=== PATIENT | male | born 1955 | race Caucasian/White ===

== ENCOUNTER 2024-02-17 14:44 | Outpatient (AMB) | payer MEDICARE, SELFPAY ==
[2024-02-17 14:54] VITALS: BP 120/74; PULSE 66; O2SAT 97; BMI 24.4
--- NOTE | 2024-02-17 14:54 | A.OFFPC_ITS ---
Vital Signs 02/17/24 14:54 Height 5 ft 7.5 in Weight 158 lb 4 oz BMI 24.4 BP 120/74 Blood Pressure Location Lt brachial Position Sitting Pulse 66 Pulse Source Pulse Oximeter Pulse Oximetry (%) 97 Oxygen Delivery Method Room Air Intake Visit Reasons: est care Intake Note: Patient is here as a new patient with concern of not hearing out of his left ear for the last year. Allergies No Known Allergies Allergy (Verified 02/17/24 15:01) Medication List - Last Reconciled 02/17/24 by Mich Worthington MD alprazolam mg PO citalopram 20 mg PO DAILY colestipol 1 g PO DAILY ezetimibe 10 mg PO DAILY triamcinolone acetonide (Nasacort) 2 sprays intranasal DAILY Tobacco use date assessed: 02/17/24 Fall risk assessment: No Falls in past year Last assessed Fall Risk: 02/17/24 Dental Screening Dental Screen Date: 02/17/24 Did you have a dental visit in the last 12 months?: Yes Did you have a dental problem in the last 6 months where you did not have access to dental care?: No Was dental information given to patient?: Patient has dentist HPI est care HPI Details New patient Prior PCP:? Gonzales Last office visit/CPE: Dec Acute issue(s): PMHx: ?Anxiety,?hyperlipidemia, Rhinitis, Asthma, Elevated PSA Dr Nuñez Urology SurgHx: R inguinal Hernia FHx: Mom: Liver CA. Breast CA. Dad: Early CAD & TN. SocHx: Cigar 4 x a month, EtOH quit age 28. No drugs PFSH Social History Housing: House Patient Tobacco Use Status: Former Tobacco user e-Cigarette/Vaping Use: Never Used service: No Current occupational status: retired Cognitive needs: No Hearing needs: No Vision needs: No Questionnaire PHQ-9 Over the last 2 weeks, how often have you been bothered by any of the following problems? 1. Little interest or pleasure in doing things: not at all 2. Feeling down, depressed, or hopeless: not at all 3. Trouble falling or staying asleep, or sleeping too much: not at all 4. Feeling tired or having little energy: not at all 5. Poor appetite or overeating: not at all 6. Feeling bad about yourself - or that you are a failure or have let yourself or your family down: not at all 7. Trouble concentrating on things, such as reading the newspaper or watching television: not at all 8. Moving or speaking so slowly that other people could have noticed. Or the opposite - being so fidgety or restless that you have been moving around a lot more than usual: not at all 9. Thoughts that you would be better off or of hurting yourself in some way: not at all Total score: 0 Depression Screening Interpretation: Negative Depression Screening Done: Yes 26200 - PHQ-9 Billing: Yes Source: Developed by Drs. Yahir Jackson, Teri Shoemaker, David Jimenez and colleagues, with an educational louis from [employer]. Thrive Questionnaire Date Thrive assessed: 02/17/24 I am a: Patient What is your living situation today?: I have a steady place to live Within the past 12 months, did the food you bought not last and you didn't have the money to get more?: Never true Within the past 12 months, did you worry whether your food would run out before you got money to buy more?: Never true Do you have trouble paying for medicines?: No Do you have trouble getting transportation to medical appointments?: No Do you have trouble paying your heating and electricity bill?: No Do you have trouble taking care of your child, family member or friend?: No Do you have trouble with day-to-day activities such as bathing, preparing meals, shopping, managing finances, etc.?: No Are you currently unemployed and looking for a job?: No Are you interested in more education?: No THRIVE Score: 0 LESLIE-7 AMB Questionnaire LESLIE-7 Date LESLIE - 7 assessed: 02/17/24 Feeling nervous, anxious, or on edge: 0 = Not at all Not being able to stop or control worryin = Not at all Worrying too much about different things: 0 = Not at all Trouble relaxin = Not at all Being so restless that it is hard to sit still: 0 = Not at all Becoming easily annoyed or irritable: 0 = Not at all Feeling afraid as if something awful might happen: 0 = Not at all Total LESLIE-7 score (0-4 normal; 5-9 mild; 10-14 moderate; 15-21 severe): 0 Source: Developed by Drs. Yahir Jackson, Teri Shoemaker, David Jimenez and colleagues, with an educational louis from [employer]. LESLIE-7 Assessment Billing LESLIE-7 Assessment Tool: LESLIE-7 Assessment 40708 Review of Systems Const Denies chills, Denies fatigue, Denies fever(s), Denies headache(s) and Denies weakness ENT Denies dizziness and Denies headache(s) Card Denies chest pain, Denies lightheadedness, Denies dyspnea and Denies other (Palpitations) Resp Denies cough, Denies dyspnea, Denies wheezing and Denies other ( shortness of breath) Musc Denies numbness and Denies tingling Neuro Denies dizziness, Denies headache(s), Denies numbness, Denies tingling, Denies paresthesias and Denies weakness Psych Denies anxiety and Denies depression Endo Denies fatigue Aller/Immun Denies wheezing Physical exam (Primary Care) Vital Signs: Last Vital Signs Pulse 66 02/17/24 14:54 BP 120/74 02/17/24 14:54 Pulse Ox 97 02/17/24 14:54 Oxygen Delivery Method Room Air 02/17/24 14:54 BMI result Body Mass Index 24.4 Tobacco/Smoking Status: Tobacco use Status Tobacco use date assessed 02/17/24 02/17/24 15:10 Patient Tobacco Use Status Former Tobacco user 02/17/24 15:10 e-Cigarette/Vaping Use Never Used 02/17/24 15:10 PHQ-9: PHQ-9 Score PHQ-9: Total score 0 02/17/24 15:30 Depression Screening Interpretation: Negative Thrive Assessment: Date of Thrive Assessment Date Thrive assessed 02/17/24 02/17/24 15:10 Const General: no acute distress and well developed Nutritional Appearance: well nourished Orientation/consciousness: patient oriented x3 HENMT Head: Yes normocephalic and Yes atraumatic Eyes General: appearance normal, both eyes and all related structures Pupils: Equal, round and reactive pupils present EOM: EOMs intact bilaterally Resp Effort & Inspection: normal respiratory effort Auscultation: clear to auscultation bilaterally Cardio Rate: regular rate Rhythm: regular rhythm Heart sounds: S1 normal heart sound present, S2 normal heart sound present, no gallops, no murmurs and no rubs Neuro General: patient oriented x3 and gait normal Cranial nerves: Yes Equal, round and reactive pupils present Psych Affect: normal affect Assessment and Plan Assessment & Plan (1) Left ear hearing loss: Code(s): H91.92 - Unspecified hearing loss, left ear Plan: Referred?for?audiology Referred?to?ENT (2) Anxiety: Code(s): F41.9 - Anxiety disorder, unspecified Plan: Patient?is?on?citalopram?and?alprazolam?with?good?control Continue?current?medication?regime (3) Hyperlipidemia: Code(s): E78.5 - Hyperlipidemia, unspecified Plan: Check?lipids (4) Anxiety with depression: Code(s): F41.8 - Other specified anxiety disorders Plan: Check?lipid?as?above Continue?citalopram?and?alprazolam (5) Rhinitis: Code(s): J31.0 - Chronic rhinitis Plan: Continue?Nasacort Advised?smoking?cessation (6) Family history of coronary artery disease: Code(s): Z82.49 - Family history of ischemic heart disease and other diseases of the circulatory system Plan: Check?labs (7) Elevated PSA: Code(s): R97.20 - Elevated prostate specific antigen [PSA] Plan: Follow-up?with?urology?as?recommended (8) Lung nodules: Code(s): R91.8 - Other nonspecific abnormal finding of lung field Plan: Patient?has?had?low?dose?CT?screening?which?shows?nodules - stable Continue?annual?screen (9) Laboratory exam ordered as part of routine general medical examination: Code(s): Z00.00 - Encounter for general adult medical examination without abnormal findings Plan: Check?labs Orders: Orders Lipid Panel Today Z00.00 - Encounter for general adult medical examination without abnormal findings Microalbumin, Random (w Creat) Today I10 - Essential (primary) hypertension Prostate Specific Antigen Scr Today Z12.5 - Encounter for screening for malignant neoplasm of prostate UA and rflx microscopic Today Z00.00 - Encounter for general adult medical examination without abnormal findings Comprehensive [place]. Panel Fast Today Z00.00 - Encounter for general adult medical examination without abnormal findings Complete Blood Count Auto Diff Today Z00.00 - Encounter for general adult medical examination without abnormal findings TSH reflex Free T4 Today Z00.00 - Encounter for general adult medical examination without abnormal findings Referrals Ear/Nose/Throat Referral H91.92 - Unspecified hearing loss, left ear Audiology Referral H91.92 - Unspecified hearing loss, left ear Medications: New triamcinolone acetonide (Nasacort) 2 sprays intranasal DAILY 30 days 16.9 mL 3RF alprazolam MassPat Verified. 0.25 mg PO DAILY 30 days PRN 30 tabs 0RF anxiety F41.8 - Other specified anxiety disorders albuterol sulfate 90 mcg/actuation (Ventolin HFA) 2 puffs inhalation Q4-6H 30 days PRN 8.5 grams 4RF shortness of breath or wheezing Coding Level of Care Code New Pt Level 3 (87456) Diagnoses Left ear hearing loss H91.92 Anxiety F41.9 Hyperlipidemia E78.5 Anxiety with depression F41.8 Rhinitis J31.0 Family history of coronary artery disease Z82.49 Elevated PSA R97.20 Lung nodules R91.8 Laboratory exam ordered as part of routine general medical examination Z00.00 Additional Codes LESLIE-7 Assessment Billing - LESLIE-7 Assessment Tool: LESLIE-7 Assessment 36747 ([id number])
== END 2024-02-17 16:01 | disposition home or self-care (01) ==
PROVIDERS: Visit Provider Family Medicine
DX: H91.92 Unspecified hearing loss, left ear (principal); F41.9 Anxiety disorder, unspecified; E78.5 Hyperlipidemia, unspecified; F41.8 Other specified anxiety disorders; J31.0 Chronic rhinitis; Z82.49 Family history of ischemic heart disease and other diseases of the circulatory system; R97.20 Elevated prostate specific antigen [PSA]; R91.8 Other nonspecific abnormal finding of lung field
CPT/HCPCS: 99203

== ENCOUNTER 2024-04-17 08:31 | Outpatient (REF) | payer MEDICARE, SELFPAY ==
[2024-04-17 11:31] LABS: MANUAL DIFF FLAG NO
[2024-04-17 11:34] LABS: Basophils Absolute Auto 0.1 X10*3/uL (0.0-0.2); Basophils Percent Auto 1.2 % (0-2); Eosinophils Absolute Auto 0.1 X10*3/uL (0.0-0.4); Eosinophils Percent Auto 1.4 % (0-4); Hematocrit 52.2 % (42.0-52.0); Hemoglobin 17.7 g/dl (14.0-18.0); Imm Gran Abs Auto 0.02 X10*3/uL (0.00-0.03); Imm Gran Pct Auto 0.3 % (0.0-0.4); Lymphocytes Absolute Auto 2.2 X10*3/uL (1.2-4.9); Lymphocytes Percent Auto 28.3 % (20-40); Mean Corpuscular HGB Conc 33.9 g/dl (31.0-36.0); Mean Corpuscular Volume 94.4 fL (80.0-98.0); Mean Platelet Volume 10.4 fL (9.4-12.4); Monocytes Absolute Auto 0.5 X10*3/uL (0.1-1.2); Monocytes Percent Auto 6.8 % (2-11); Neutrophils Absolute Auto 4.8 x10*3/uL (2.0-8.3); Platelet Count 333 X10*3/uL (160-400); Red Blood Count 5.53 X10*6/uL (4.60-5.80); Red Cell Distribution Width 13.4 % (11.0-16.0); White Blood Count 7.7 X10*3/uL (4.8-10.8)
[2024-04-17 12:20] LABS: Microalbumin Urine < 5.0 mg/L
[2024-04-17 12:23] LABS: Prostate Specific Antigen Scr 4.74 ng/mL (<0.05-4.0)
[2024-04-17 12:26] LABS: Alanine Aminotransferase 30 U/L (0-40); Albumin Level 4.5 g/dL (3.5-5.0); Alkaline Phosphatase 95 U/L (39-117); Anion Gap 17 (12-20); Aspartate Amino Transferase 18 U/L (5-37); Bilirubin Total 0.4 mg/dL (0.0-1.0); Blood Urea Nitrogen 12 mg/dL (9-16); Calcium 9.9 mg/dL (8.4-10.2); Carbon Dioxide 23 mmol/L (22-29); Chloride 104 mmol/L (96-108); Cholesterol 230 mg/dL (<200); Estimated Glomerular Filt Rate > 60; Glucose Fasting 111 mg/dL (60-99); HDL Cholesterol 42 mg/dL (>40); LDL Cholesterol Calculated 158 mg/dL (<100); Potassium 4.1 mmol/L (3.3-5.1); Sodium 140 mmol/L (135-145); Total Protein 7.3 g/dL (6.5-8.0); Triglycerides 152 mg/dL (<150)
[2024-04-17 12:28] LABS: TSH reflex Free T4 2.09 uIU/mL (0.32-4.0)
[2024-04-17 12:33] LABS: Appearance Urine Clear; Color Urine Yellow; Glucose Urine UA Negative (Negative); Leukocyte Esterase Urine Small (1+) (Negative); Nitrite Urine Negative (Negative); Specific Gravity - Urine 1.015 (1.005-1.025); UMIC TRIGGER UA YES; Urine Blood Negative (Negative); Urine Ketones Negative (Negative); Urine Protein Negative (Neg-Trace)
[2024-04-17 13:22] LABS: Bacteria Urine None Seen (None Seen); Hyaline Casts Urine 0-2 /LPF (0-2); RBC Urine 0-2 /HPF (0-2); Squamous Epithelial Cell Urine 0-2 /HPF (0-2); WBC Urine 0-5 /HPF (0-5)
== END 2024-04-17 08:32 | disposition home or self-care (01) ==
LOC: HO.WFDLDS 08:31
PROVIDERS: Visit Provider Family Medicine
DX: Z00.00 Encounter for general adult medical examination without abnormal findings (principal); I10 Essential (primary) hypertension; Z12.5 Encounter for screening for malignant neoplasm of prostate
CPT/HCPCS: 36415; 80053; 80061; 81001; 81003; 82043; 82570; 84153; 84443; 85025

== ENCOUNTER 2024-05-18 14:19 | Outpatient (AMB) | payer MEDICARE, SELFPAY ==
--- NOTE | 2024-05-18 14:38 | A.OFFPC_ITS ---
Vital Signs 05/18/24 14:43 Height 5 ft 7.5 in Weight 156 lb 2 oz BMI 24.1 BP 138/68 Blood Pressure Location Rt brachial Position Sitting Pulse 83 Pulse Source Pulse Oximeter Pulse Oximetry (%) 94 Oxygen Delivery Method Room Air Intake Visit Reasons: CPE with f/u labs and health maintenance 30 mins Intake Note: Physical. Tried getting a refill on colestipol, but never received it. He is unsure if he should still be on it. Allergies No Known Allergies Allergy (Verified 05/18/24 14:38) Medication List - Last Reconciled 05/18/24 by Mackenzie Quiroz PA-C albuterol sulfate 90 mcg/actuation (Ventolin HFA) 2 puffs inhalation Q4-6H PRN 30 days alprazolam 0.25 mg PO DAILY PRN 30 days citalopram 20 mg PO DAILY colestipol 1 g PO DAILY ezetimibe 10 mg PO DAILY triamcinolone acetonide (Nasacort) 2 sprays intranasal DAILY 30 days Tobacco use date assessed: 02/17/24 Dental Screening Dental Screen Date: 02/17/24 HPI CPE with f/u labs and health maintenance 30 mins HPI Details Patient is a 68-year-old male with a significant past medical history of anxiety, depression, elevated PSA, hyperlipidemia and lung nodules presenting today for a physical exam. He is relatively new here. CV: Blood pressure today in the office is 138/68. He states that he has never been on blood pressure medications. He denies any chest pain or shortness on breath. Does have a significant family history of coronary artery disease. He has a smoker and does have high cholesterol. His cholesterol is not well- controlled and he states that this regimen has worked well for him and he has not that worried about this. He does not want any medication adjustments. Pulm: He follows with the low dose ct program. He has a hx of nodules and follows annually. He is a smoker. No intention of quittting. Uro: following with Dr. Nuñez for elevated psa. He states he did have an MRI. He has an appointment in a couple weeks for a follow up. Psych: he is on citalopram and alprazolam. States he is very stable with this for the last 8 years. Colonoscopy: He thinks he is overdue [facility] Social History Housing: House Patient Tobacco Use Status: Former Tobacco user e-Cigarette/Vaping Use: Never Used service: No Current occupational status: retired Cognitive needs: No Hearing needs: No Vision needs: No Questionnaire Thrive Questionnaire Date Thrive assessed: 02/17/24 LESLIE-7 AMB Questionnaire LESLIE-7 Date LESLIE - 7 assessed: 02/17/24 Source: Developed by Drs. Yahir Jackson, Teri Shoemaker, David Jimenez and colleagues, with an educational louis from [employer]. Physical exam (Primary Care) Vital Signs: Last Vital Signs Pulse 83 05/18/24 14:43 BP 138/68 05/18/24 14:43 Pulse Ox 94 05/18/24 14:43 Oxygen Delivery Method Room Air 05/18/24 14:43 BMI result Body Mass Index 24.1 Tobacco/Smoking Status: Tobacco use Status Tobacco use date assessed 02/17/24 05/18/24 14:44 Patient Tobacco Use Status Former Tobacco user 05/18/24 14:44 e-Cigarette/Vaping Use Never Used 05/18/24 14:44 Thrive Assessment: Date of Thrive Assessment Date Thrive assessed 02/17/24 05/18/24 14:44 Const Orientation/consciousness: patient oriented x3 HENMT Ears: hearing grossly normal bilaterally and TM's normal bilaterally General nose exam: No nasal polyps present Face and sinus: Yes sinuses nontender Mouth: Normal oral and palatal mucosa present Eyes Pupils: Equal, round and reactive pupils present EOM: EOMs intact bilaterally Neck Neck: Yes full ROM and Yes no lymphadenopathy Thyroid: Thyroid normal Chest Chest palpation & inspection: normal inspection of the chest Resp Auscultation: clear to auscultation bilaterally Cardio Rate: regular rate Rhythm: regular rhythm Heart sounds: S1 normal heart sound present and S2 normal heart sound present Peripheral pulses: Peripheral pulses 2+ throughout GI Other: Soft, nontender Auscultation: normal bowel sounds Rectal Exam - Male: Yes deferred General: Yes no CVA tenderness Back/Spine/Pelvis Other: Nontender Back: no CVA tenderness Skin General skin exam: no rashes or lesions noted Neuro General: patient oriented x3, gait normal, CN's II-XI intact bilaterally and deep tendon reflexes 2+ bilaterally Cranial nerves: Yes Equal, round and reactive pupils present Motor exam (neuro): 5/5 motor strength present throughout Sensory Exam: double simultaneous stimulation for sensation normal Coordination: [id number] test normal and Romberg test negative Extrem General: Yes normal to inspection and Yes full ROM Psych Affect: normal affect Attitude: cooperative Thought process: Normal thought process present Thought content: Normal thought content present Insight: Good insight present (Psych) Judgement: Good judgement present (Psych) Office Procedures EKG Details: EKG today in office is normal sinus rhythm. EKG interpreted by myself and patient's PCP. [id number], Complete Results Reviewed Results Reviewed: Laboratory Tests 04/17/24 04/17/24 08:33 08:39 WBC 7.7 RBC 5.53 Hgb 17.7 Hct 52.2 H Plt Count 333 Sodium 140 Potassium 4.1 Chloride 104 Carbon Dioxide 23 Anion Gap 17 BUN 12 Creatinine 0.92 Estimated GFR > 60 Fasting Glucose 111 H Calcium 9.9 Total Bilirubin 0.4 AST 18 ALT 30 Alkaline Phosphatase 95 Albumin 4.5 Triglycerides 152 H Cholesterol 230 H LDL Cholesterol, Calc 158 H HDL Cholesterol 42 PSA Screen 4.74 H TSH 2.09 Urine Creatinine 125.50 Urine Microalbumin < 5.0 Assessment and Plan Assessment & Plan (1) Routine general medical examination at a health care facility: Code(s): Z00.00 - Encounter for general adult medical examination without abnormal findings Plan: Health maintenance reviewed. EKG today in office as listed above. He is asymptomatic but does have a family history of CAD. I have encouraged smoking cessation but he does not wish to quit. Carotid ultrasound and abdominal ultrasound to rule out AAA ordered. I have encouraged diet changes to help with his cholesterol. He does not wish to adjust his regimen. Overdue colonoscopy. Ordered today. Phone number provided for audiology and ENT. (2) Hyperlipidemia: Code(s): E78.5 - Hyperlipidemia, unspecified Plan: As above (3) Family history of coronary artery disease: Code(s): Z82.49 - Family history of ischemic heart disease and other diseases of the circulatory system Plan: Asymptomatic (4) Smoker: Code(s): F17.200 - Nicotine dependence, unspecified, uncomplicated Plan: Encouraged cessation (5) IFG (impaired fasting glucose): Code(s): R73.01 - Impaired fasting glucose Plan: A1c ordered today. Labs reviewed in office. Follow up in 6 months with PCP. Sooner if needed. Patient understands and agrees with the plan. Orders: Orders AMB EKG-In Office Today E78.5 - Hyperlipidemia, unspecified, F17.200 - Nicotine dependence, unspecified, uncomplicated, Z00.00 - Encounter for general adult medical examination without abnormal findings, Z13.6 - Encounter for screening for cardiovascular disorders, Z82.49 - Family history of ischemic heart disease and other diseases of the circulatory system US abdominal aortic aneurysm Today Z13.6 - Encounter for screening for cardiovascular disorders US carotid duplex BI Today E78.5 - Hyperlipidemia, unspecified, F17.200 - Nicotine dependence, unspecified, uncomplicated, Z82.49 - Family history of ischemic heart disease and other diseases of the circulatory system Hemoglobin A1c Today R73.01 - Impaired fasting glucose Referrals Open Access Screening Colonoscopy Referral Z12.11 - Encounter for screening for malignant neoplasm of colon, Z12.12 - Encounter for screening for malignant neoplasm of rectum Medications: New albuterol sulfate 90 mcg/actuation 2 puffs inhalation Q4-6H PRN 8.5 grams 0RF shortness of breath or wheezing colestipol 1 g PO DAILY 90 tabs 3RF ezetimibe 10 mg PO DAILY 90 tabs 3RF Coding Level of Care Code Est Pt Prev Care >65y(46577) Diagnoses Routine general medical examination at a health care facility Z00.00 Hyperlipidemia E78.5 Family history of coronary artery disease Z82.49 Smoker F17.200 IFG (impaired fasting glucose) R73.01 CPT Codes EKG - CPT: [id number], Complete ([id number])
[2024-05-18 14:43] VITALS: BP 138/68; PULSE 83; O2SAT 94; BMI 24.1
== END 2024-05-18 15:29 | disposition home or self-care (01) ==
PROVIDERS: PCP Physician Assistant; Visit Provider Physician Assistant
DX: Z00.00 Encounter for general adult medical examination without abnormal findings (principal); E78.5 Hyperlipidemia, unspecified; Z82.49 Family history of ischemic heart disease and other diseases of the circulatory system; F17.200 Nicotine dependence, unspecified, uncomplicated; R73.01 Impaired fasting glucose
CPT/HCPCS: 93000; 99397

== ENCOUNTER 2024-05-18 15:25 | Outpatient (REF) | payer MEDICARE, SELFPAY ==
[2024-05-18 17:48] LABS: Estimated Average Glucose 128 mg/dL; Hemoglobin A1c % 6.1 % (<6.0)
== END 2024-05-18 15:26 | disposition home or self-care (01) ==
LOC: HO.WFDLDS 15:25
PROVIDERS: Visit Provider Physician Assistant
DX: R73.01 Impaired fasting glucose (principal)
CPT/HCPCS: 36415; 83036

== ENCOUNTER 2024-06-14 09:01 | Outpatient (REF) | payer MEDICARE, SELFPAY ==
--- NOTE | ~2024-06-14 | US_ITS ---
EXAMINATION: US RETROPERITONEAL LIMITED (AORTA) CLINICAL INFORMATION: Screening for cardiovascular disorders. COMPARISON: None available. TECHNIQUE: Pugh-scale, color Doppler and spectral Doppler evaluation of the abdominal aorta. FINDINGS: The aorta is normal. The measurements of the aorta in maximum AP and transverse dimensions respectively are as follows: Proximal: 2.5 x 2.4 cm. Mid: 1.8 x 1.8 cm. Distal: 1.6 x 1.7 cm. PSV: 142 cm/s. The measurements of the common iliac arteries in maximum AP and TRV dimensions are as follows: Right Common Iliac Artery: 1.8 x 1.8 cm. Left Common Iliac Artery: 1.8 x 1.8 cm. US/US abdominal aortic aneurysm IMPRESSION: No sonographic evidence of abdominal aortic aneurysm. Bilateral common iliac artery ectasia.
--- NOTE | ~2024-06-14 | US_ITS ---
EXAMINATION: US EXTRACRANIAL CAROTID DUPLEX, BILATERAL CLINICAL INFORMATION: Nicotine dependence COMPARISON: None available. TECHNIQUE: Real-time ultrasound and Doppler techniques (integrating B-mode 2-D vascular images, Doppler spectral analysis and color-flow Doppler imaging) were utilized to interrogate the extracranial carotid arteries, the vertebral arteries and proximal subclavian arteries bilaterally. The degree of stenosis is determined by criteria similar to NASCET. FINDINGS: Right Side: 1. There is mild atherosclerotic plaque seen in the bifurcation/proximal ICA region. 2. The common carotid artery PSV proximally is 65.9 cm/s and distally 61.5 cm/s. 3. The proximal internal carotid artery velocities are 37.8 cm/s systolic and 15.8 cm/s diastolic. 4. The proximal external carotid artery PSV is 90.9 cm/s. 5. The vertebral artery shows antegrade flow. 6. The subclavian artery waveforms are normal. Left Side: 1. There is mild atherosclerotic plaque seen in the bifurcation/proximal ICA region. 2. The common carotid artery PSV proximally is 64.7 cm/s and distally 47.8 cm/s. 3. The proximal internal carotid artery velocities are 64.5 cm/s systolic and 22.8 cm/s diastolic. 4. The proximal external carotid artery PSV is 108 cm/s. 5. The vertebral artery shows antegrade flow. 6. The subclavian artery waveforms are normal. US/US carotid duplex BI IMPRESSION: 1. RIGHT: Minimal, non-hemodynamically significant stenosis of the proximal right internal carotid artery corresponding to a 0-49% stenosis by velocity criteria. 2. LEFT: Minimal, non-hemodynamically significant stenosis of the proximal left internal carotid artery corresponding to a 0-49% stenosis by velocity criteria.
== END 2024-06-14 09:02 | disposition home or self-care (01) ==
LOC: HO.US 09:01
PROVIDERS: PCP Family Medicine; Visit Provider Physician Assistant
DX: Z13.6 Encounter for screening for cardiovascular disorders (principal); I77.811 Abdominal aortic ectasia; I65.23 Occlusion and stenosis of bilateral carotid arteries; E78.5 Hyperlipidemia, unspecified; F17.200 Nicotine dependence, unspecified, uncomplicated; Z82.49 Family history of ischemic heart disease and other diseases of the circulatory system
CPT/HCPCS: 76706; 93880

== ENCOUNTER 2024-11-10 09:16 | Outpatient (AMB) | payer MEDICARE, SELFPAY ==
--- NOTE | 2024-11-10 09:46 | A.OFFPC_ITS ---
Vital Signs 11/10/24 09:55 Height 5 ft 7.5 in Weight 160 lb BMI 24.7 BP 120/60 Blood Pressure Location Rt brachial Position Sitting Respiration 12 Pulse 62 Pulse Source Pulse Oximeter Temp 97.7 F Temp Source Oral Pulse Oximetry (%) 95 Oxygen Delivery Method Room Air Intake Visit Reasons: follow up labs Allergies simvastatin Allergy (Intermediate, Verified 11/10/24 09:52) Anxiety Medication List - Last Reconciled 11/10/24 by Mich Worthington MD albuterol sulfate 90 mcg/actuation 2 puffs inhalation Q4-6H PRN alprazolam 0.25 mg PO DAILY PRN 30 days citalopram 20 mg PO DAILY 30 days colestipol 1 g PO DAILY ezetimibe 10 mg PO DAILY triamcinolone acetonide (Nasacort) 2 sprays intranasal DAILY 30 days Tobacco use date assessed: 02/17/24 Dental Screening Dental Screen Date: 02/17/24 HPI follow up labs HPI Details 68 y/o male [facility] Last A1c 05/18/24 6.1%. A1c today 11/10/24 is 6.1%. Hx of significantly elevated LDL cholesterol. FHx of CAD. Notes he had been unable to tolerate simvastatin due to fatigue and a general feeling of unwellness. Notes he continues smoking intermittently. [facility] Social History Housing: House Patient Tobacco Use Status: Former Tobacco user e-Cigarette/Vaping Use: Never Used service: No Current occupational status: retired Cognitive needs: No Hearing needs: No Vision needs: No Questionnaire PHQ-9 Over the last 2 weeks, how often have you been bothered by any of the following problems? 1. Little interest or pleasure in doing things: not at all 2. Feeling down, depressed, or hopeless: not at all 3. Trouble falling or staying asleep, or sleeping too much: not at all 4. Feeling tired or having little energy: not at all 5. Poor appetite or overeating: not at all 6. Feeling bad about yourself - or that you are a failure or have let yourself or your family down: not at all 7. Trouble concentrating on things, such as reading the newspaper or watching television: not at all 8. Moving or speaking so slowly that other people could have noticed. Or the opposite - being so fidgety or restless that you have been moving around a lot more than usual: not at all 9. Thoughts that you would be better off or of hurting yourself in some way: not at all Total score: 0 Source: Developed by Drs. Yahir Jackson, Teri Shoemaker, David Jimenez and colleagues, with an educational louis from [employer]. Thrive Questionnaire Date Thrive assessed: 11/03/24 I am a: Patient What is your living situation today?: I have a steady place to live Within the past 12 months, did the food you bought not last and you didn't have the money to get more?: Never true Within the past 12 months, did you worry whether your food would run out before you got money to buy more?: Never true Do you have trouble paying for medicines?: No Do you have trouble getting transportation to medical appointments?: No Do you have trouble paying your heating and electricity bill?: No Do you have trouble taking care of your child, family member or friend?: No Do you have trouble with day-to-day activities such as bathing, preparing meals, shopping, managing finances, etc.?: No Are you currently unemployed and looking for a job?: No Are you interested in more education?: No Please select the resources that you would like help with: None Currently or been in a relationship where the following occur: No concerns reported THRIVE Score: 0 AUDIT C Alcohol Use Questionnaire (AUDIT-C) 1. How often do you have a drink containing alcohol?: Never Total Score: 0 LESLIE-7 AMB Questionnaire LESLIE-7 Date LESLIE - 7 assessed: 02/17/24 Feeling nervous, anxious, or on edge: 1 = Several days Not being able to stop or control worryin = Not at all Worrying too much about different things: 0 = Not at all Trouble relaxin = Not at all Being so restless that it is hard to sit still: 0 = Not at all Becoming easily annoyed or irritable: 0 = Not at all Feeling afraid as if something awful might happen: 0 = Not at all Total LESLIE-7 score (0-4 normal; 5-9 mild; 10-14 moderate; 15-21 severe): 1 Source: Developed by Teri Tyson.W. Navid, David Jimenez and colleagues, with an educational louis from [employer]. Review of Systems Const Denies chills, Denies fatigue, Denies fever(s), Denies headache(s) and Denies weakness ENT Denies dizziness and Denies headache(s) Card Denies dyspnea Resp Denies cough, Denies dyspnea, Denies wheezing and Denies other (shortness of breath) Musc Denies numbness and Denies tingling Neuro Denies dizziness, Denies headache(s), Denies numbness, Denies tingling and Denies weakness Psych Denies anxiety and Denies depression Endo Denies fatigue Aller/Immun Denies wheezing Physical exam (Primary Care) Tobacco/Smoking Status: Tobacco use Status Tobacco use date assessed 02/17/24 11/10/24 09:46 Patient Tobacco Use Status Former Tobacco user 11/10/24 09:46 e-Cigarette/Vaping Use Never Used 11/10/24 09:46 PHQ-9: PHQ-9 Score PHQ-9: Total score 0 11/10/24 09:48 Thrive Assessment: Date of Thrive Assessment Date Thrive assessed 11/03/24 11/10/24 09:46 Currently or been in a relationship where the following occur: No concerns reported Const General: well developed; No acute distress Nutritional Appearance: well nourished Orientation/consciousness: patient oriented x3 HENMT Head: Yes normocephalic and Yes atraumatic Eyes General: appearance normal, both eyes and all related structures Pupils: Equal, round and reactive pupils present EOM: EOMs intact bilaterally Resp Effort & Inspection: normal respiratory effort Auscultation: clear to auscultation bilaterally Cardio Rate: regular rate Rhythm: regular rhythm Heart sounds: S1 normal heart sound present, S2 normal heart sound present, no gallops, no murmurs and no rubs Neuro General: patient oriented x3 and gait normal Cranial nerves: Yes Equal, round and reactive pupils present Psych Affect: normal affect Coding Level of Care Code Est Pt Level 3 (18426) Diagnoses Pre-diabetes R73.03 Hyperlipidemia E78.5 Family history of coronary artery disease Z82.49 Smoker F17.200 Assessment & Plan Assessment & Plan (1) Pre-diabetes: Code(s): R73.03 - Prediabetes Category: Medical Plan: A1c?6.1%?is?in?pre?diabetes?range Encouraged?diet?lower?in?sugars?and?starches Will?continue?to?monitor (2) Hyperlipidemia: Code(s): E78.5 - Hyperlipidemia, unspecified Category: Medical Plan: Significantly?elevated?LDL?cholesterol. Recent?carotid?artery?studies?did?not?show?any?significant?hemodynamic?compromis e Abdominal?ultrasound?did?not?show?abdominal?aortic?aneurysm Patient?has?strong?family?history?of?coronary?artery?disease?cholesterol?levels, is a?smoker and has elevated fasting Blood Sugar. He is on Zetia & Colestipol Strongly?advised?working?diet?lower?in?satura [place]?fats?and?cholesterol?exercise?in?smoking?cessation. He?has?tried?simvastatin?in?the?past?which?caused?significantly?achy?muscles?and ?fatigue. We?discussed?that?newer?statin?medications?often?can?b e?tolerated?so?we?will?try?atorvastatin?and?if?he?has?an?issue,?will?try?pravast atin?or?rosuvastatin. (3) Family history of coronary artery disease: Code(s): Z82.49 - Family history of ischemic heart disease and other diseases of the circulatory system Category: Medical Plan: As above (4) Smoker: Code(s): F17.200 - Nicotine dependence, unspecified, uncomplicated Category: Social Hx Plan: As?above,?advised?cessation Patient?says?he?is?only?smoking?a?couple?of?cigarettes?per?day?or?fewer Agrees?he?should?be?working?on?weaning?down?and?stopping. Will?continue?to?encourage?this. Orders: Orders Comprehensive [place]. Panel Fast Today E78.5 - Hyperlipidemia, unspecified, Z00.00 - Encounter for general adult medical examination without abnormal findings Lipid Panel Today E78.5 - Hyperlipidemia, unspecified, Z00.00 - Encounter for general adult medical examination without abnormal findings Medications: New atorvastatin 40 mg PO BEDTIME 90 days 90 tabs 2RF
[2024-11-10 09:55] VITALS: BP 120/60; PULSE 62; RESP 12; TEMP 36.5; O2SAT 95; BMI 24.7
== END 2024-11-10 10:14 | disposition home or self-care (01) ==
PROVIDERS: PCP Family Medicine; Visit Provider Family Medicine
DX: R73.03 Prediabetes (principal); E78.5 Hyperlipidemia, unspecified; Z82.49 Family history of ischemic heart disease and other diseases of the circulatory system; F17.200 Nicotine dependence, unspecified, uncomplicated

== ENCOUNTER 2025-01-31 10:32 | Outpatient (REF) | payer MEDICARE, SELFPAY ==
[2025-01-31 14:39] LABS: Alanine Aminotransferase 40 U/L (0-40); Albumin Level 4.5 g/dL (3.5-5.0); Alkaline Phosphatase 100 U/L (39-117); Anion Gap 10 (12-20); Aspartate Amino Transferase 26 U/L (5-37); Bilirubin Total 0.5 mg/dL (0.0-1.0); Blood Urea Nitrogen 8 mg/dL (9-16); Calcium 9.5 mg/dL (8.4-10.2); Carbon Dioxide 28 mmol/L (22-29); Chloride 107 mmol/L (96-108); Cholesterol 143 mg/dL (<200); Estimated Glomerular Filt Rate > 60; Glucose Fasting 105 mg/dL (60-99); HDL Cholesterol 42 mg/dL (>40); LDL Cholesterol Calculated 79 mg/dL (<100); Potassium 3.9 mmol/L (3.3-5.1); Sodium 141 mmol/L (135-145); Total Protein 7.2 g/dL (6.5-8.0); Triglycerides 114 mg/dL (<150)
== END 2025-01-31 10:33 | disposition home or self-care (01) ==
LOC: HO.WFDLDS 10:32
PROVIDERS: Visit Provider Family Medicine
DX: Z00.00 Encounter for general adult medical examination without abnormal findings (principal); E78.5 Hyperlipidemia, unspecified
CPT/HCPCS: 36415; 80053; 80061

== ENCOUNTER 2025-02-09 09:17 | Outpatient (AMB) | payer MEDICARE, SELFPAY ==
--- NOTE | 2025-02-09 09:44 | A.OFFPC_ITS ---
Vital Signs 02/09/25 09:48 Height 5 ft 7.5 in Weight 164 lb BMI 25.3 BP 130/70 Blood Pressure Location Rt brachial Position Sitting Respiration 14 Pulse 64 Pulse Source Pulse Oximeter Temp 98.0 F Temp Source Oral Pulse Oximetry (%) 93 Oxygen Delivery Method Room Air Intake Visit Reasons: F/U Med review Intake Note: patient is scheduled for lab review Tablet Coater Required: No Allergies simvastatin Allergy (Intermediate, Verified 02/09/25 09:47) Anxiety Medication List - Last Reconciled 02/09/25 by Mich Worthington MD albuterol sulfate 90 mcg/actuation 2 puffs inhalation Q4-6H PRN alprazolam 0.25 mg PO DAILY PRN 30 days atorvastatin 40 mg PO BEDTIME 90 days citalopram 20 mg PO DAILY 30 days triamcinolone acetonide (Nasacort) 2 sprays intranasal DAILY 30 days Tobacco use date assessed: 02/17/24 Dental Screening Dental Screen Date: 02/17/24 HPI F/U Med review HPI Details 69 y/o male presents to f/u [facility]. Had given him a trial of artovastatin. He had had an issue with achy muscles and fatigue on simvastatin a long time ago. Labs drawn 01/31/25. Reviewed labs with pt. Fasting glucose 105. A1c 11/10/24 6.2%. Triglyceride 114. TC 143. LDL 79, HDL 42. PFSH Social History Housing: House Patient Tobacco Use Status: Former Tobacco user e-Cigarette/Vaping Use: Never Used service: No Current occupational status: retired Cognitive needs: No Hearing needs: No Vision needs: No Questionnaire Thrive Questionnaire Date Thrive assessed: 11/10/24 I am a: Patient What is your living situation today?: I have a steady place to live Within the past 12 months, did the food you bought not last and you didn't have the money to get more?: Never true Within the past 12 months, did you worry whether your food would run out before you got money to buy more?: Never true Do you have trouble paying for medicines?: No Do you have trouble getting transportation to medical appointments?: No Do you have trouble paying your heating and electricity bill?: No Do you have trouble taking care of your child, family member or friend?: No Do you have trouble with day-to-day activities such as bathing, preparing meals, shopping, managing finances, etc.?: No Are you currently unemployed and looking for a job?: No Are you interested in more education?: No Please select the resources that you would like help with: None Currently or been in a relationship where the following occur: No concerns reported THRIVE Score: 0 LESLIE-7 AMB Questionnaire LESLIE-7 Date LESLIE - 7 assessed: 02/17/24 Source: Developed by Drs. Yahir Jackson, Teri Shoemaker, David Jimenez and colleagues, with an educational louis from [employer]. Review of Systems Const Denies chills, Denies fatigue, Denies fever(s), Denies headache(s) and Denies weakness ENT Denies dizziness and Denies headache(s) Card Denies dyspnea Resp Denies cough, Denies dyspnea, Denies wheezing and Denies other (shortness of breath) Musc Denies numbness and Denies tingling Neuro Denies dizziness, Denies headache(s), Denies numbness, Denies tingling and Denies weakness Psych Denies anxiety and Denies depression Endo Denies fatigue Aller/Immun Denies wheezing Physical exam (Primary Care) Vital Signs: Last Vital Signs Temp 98.0 F 02/09/25 09:48 Pulse 64 02/09/25 09:48 Resp 14 02/09/25 09:48 BP 130/70 02/09/25 09:48 Pulse Ox 93 02/09/25 09:48 Oxygen Delivery Method Room Air 02/09/25 09:48 BMI result Body Mass Index 25.3 Tobacco/Smoking Status: Tobacco use Status Tobacco use date assessed 02/17/24 02/09/25 09:44 Patient Tobacco Use Status Former Tobacco user 02/09/25 09:44 e-Cigarette/Vaping Use Never Used 02/09/25 09:44 Thrive Assessment: Date of Thrive Assessment Date Thrive assessed 11/10/24 02/09/25 09:44 Currently or been in a relationship where the following occur: No concerns reported Const General: well developed; No acute distress Nutritional Appearance: well nourished Orientation/consciousness: patient oriented x3 HENMT Head: Yes normocephalic and Yes atraumatic Eyes General: appearance normal, both eyes and all related structures Pupils: Equal, round and reactive pupils present EOM: EOMs intact bilaterally Resp Effort & Inspection: normal respiratory effort Neuro General: patient oriented x3 and gait normal Cranial nerves: Yes Equal, round and reactive pupils present Psych Affect: normal affect Coding Level of Care Code Est Pt Level 4 (38408) Diagnoses Hyperlipidemia E78.5 Screening for colon cancer Z12.11 Screening for prostate cancer Z12.5 Assessment & Plan Assessment & Plan (1) Hyperlipidemia: Code(s): E78.5 - Hyperlipidemia, unspecified Category: Medical Plan: Lipids?not?well?controlled?on?atorvastatin?40?mg?daily. He?had?tried?simvastatin?in?the?past?and?did?not?tolerate?this?but?is?tolerating ?atorvastatin?well. Continue?current?medication (2) Screening for colon cancer: Code(s): Z12.11 - Encounter for screening for malignant neoplasm of colon Category: Medical Plan: Patient?uncertain?when?his?last?colonoscopy?was. He?thinks?this?was?at?[facility] Will?try?again?to?get?records Will?discuss?options?for?follow-up?at?next?visit (3) Screening for prostate cancer: Code(s): Z12.5 - Encounter for screening for malignant neoplasm of prostate Category: Medical Plan: PSA?was?elevated?at?last?check Will?recheck?this. Orders: Orders Prostate Specific Antigen Scr Today R97.20 - Elevated prostate specific antigen [PSA], Z12.5 - Encounter for screening for malignant neoplasm of prostate Basic Metabolic Panel Today R97.20 - Elevated prostate specific antigen [PSA], Z00.00 - Encounter for general adult medical examination without abnormal findings Medications: Refilled alprazolam Mass[facility] Verified. 0.25 mg PO DAILY PRN 30 tabs 0RF anxiety 30 days F41.8 - Other specified anxiety disorders citalopram 20 mg PO DAILY 30 tabs 2RF 30 days
[2025-02-09 09:48] VITALS: BP 130/70; PULSE 64; RESP 14; TEMP 36.7; O2SAT 93; BMI 25.3
--- OUTSIDE RECORDS SUMMARY | 2025-02-09 10:03 | XMS_ITS | Encounter Summary ---
Author Organization [employer] Address [address] [place] [address] Care Team Providers Care Rent And Housing Investigator Name Role Phone Unavailable Primary Care Provider Unavailabl e Encounter Details Date Type Department Care Team (Late st Contact Info) Description 03/20/2024 Telephone [facility] [address], [place] [phone] Lokesh Burnett BDS [address] [place], [place] [phone] Social History Tobacco Use Types Packs/Day Years Used Date Smoking Tobacco: Some Days Cigarettes Smokeless Tobacco: Never Sex and Gender Information Value Date Recorded Sex Assigned at Male 11/11/2023 11:22 AM EST Legal Sex Male 11:21 AM EST Gender Identity Male 11/11/2023 11:22 AM EST Sexual Orientation Straight 11/11/2023 11 :22 AM EST documented as of this encounter Miscellaneous Notes * Telephone Encounter - Kay Min - 03/21/2024 11:45 AM EDT Patient called in to confirm if case is back from lab so that he can get an appt DR * Telephone Encounter - Kay Min - 03/20/2024 9:27 AM EDT Patient called in to confirm if case is back from lab so that he can get an appt DR documented in this encounter Plan of Treatment Not on file documented as of this encounter Visit Diagnoses Not on filedocumented in this encounter
--- OUTSIDE RECORDS SUMMARY | 2025-02-09 10:03 | XMS_ITS | Clinical Summary ---
Author Organization [facility] [address] [facility] Address [address] [place] [address] Phone Care Team Providers Care Lay Health Advocate Name Role Phone Mich Worthington MD Primary Care Provider Encounters Date Type Department Care Team Description 12/20/2024 7:43 AM EST - 12/20/2024 11:59 PM EST Hospital Encounter [facility] CT Scan [address] [place] [address] Encounter for screening for malignant neoplasm of respiratory organs; Nicotine dependence, cigarettes, uncomplicated Discharge Disposition: Home or Self Care 11/27/2024 Telephone Lung Screening Program - [place] [address] [facility] [address] [place] [id number] Marguerite Shoemaker [place] Appointment (1st notification) from Last 3 Months Medical History Medical History Date Comments Major depressive disorder, s cassandra episode 09/24/2017 DX:Major depressive disorder , single episode COPD (chronic obstructive pu lmonary disease) (CMS/HCC) DX:COPD (chronic obstructive pulmonary disease) (HCC) 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 Chronic lower back pain DX:Chron ic lower back pain Social History Tobacco Use Types Packs/Day Years Used Date Smoking Tobacco: Never Assessed Sex and Gender Information Value Date Recorded Sex Assigned at Not on file Legal Sex Male 1:57 PM EST Gender Identity Not on file Sexual Orientation Not on file Obstetrics History Plan of Treatment Health Maintenance Due Date Last Done Comments Zoster Vaccines (2 of 2) 05/03/2019 03/08/2019 Abdominal Aortic Aneurysm (AAA) Screen 10/07/2022 Cholesterol Screening (Lipid Panel) 10/07/2022 Colorectal Cancer Screening: Colonoscopy 10/07/2022 Depression Screening 10/07/2022 Falls Risk Assessment 10/07/2022 Hepatitis C Screening 10/07/2022 Medicare Annual Wellness Visit 10/07/2022 Social Influencers of Health Screening 10/07/2022 COVID-19 Vaccine ( season) 2024 01/18/2024, 10/06/2022, 10/29/2021, Additional history exists Pneumococcal Vaccine: 50+ Years (3 of 3 - PCV20 or PCV21) 01/01/2025 01/01/2020, 12/14/2014 Influenza Vaccine (Season Ended) 2025 01/18/2024, 10/06/2022, 08/30/2020, Additional history exists DTaP,Tdap,and Td Vaccines (3 - Tdap) 04/08/2029 04/08/2019, 11/23/2012 RSV Immunization Adult Patients Completed 01/18/2024 HIB Vaccines Aged Out No longer eligi ble based on patient's age to complete this topic HPV Vaccines Aged Out No longer eligi ble based on patient's age to complete this topic Hepatitis A Vaccines Aged Out No long er eligible based on patient's age to complete this topic Hepatitis B Vaccines Aged Out No long er eligible based on patient's age to complete this topic IPV Vaccines Aged Out No longer eligi ble based on patient's age to complete this topic MMR Vaccines Aged Out No longer eligi ble based on patient's age to complete this topic Meningococcal ACWY Vaccine Aged Out N o longer eligible based on patient's age to complete this topic Meningococcal B Vacine Aged Out No lo nger eligible based on patient's age to complete this topic RSV Immunization Patients Under 20 months Aged Out No longer eligible based on patient's age to complete this topic Varicella Vaccines Aged Out No longer eligible based on patient's age to complete this topic Procedures Procedure Name Priority Date/Time Associated Diagnosis Comments CT LUNG SCREENING Routine 12/20/2024 8:0 2 AM EST Encounter for screening for malignant neoplasm of respiratory organs Nicotine dependence, cigarettes, uncomplicated from Last 3 Months Results * CT Lung Screening (12/20/2024 8:02 AM EST) Anatomical Region Laterality Modality Chest Computed Tomogra phy 12/20/2024 2:48 PM EST Impressions 12/20/2024 2:59 PM EST No suspicious mass or nodule. No suspicious interval change. Underlying emphysema and at least mild interstitial lung disease. ?? LUNG RADS: Lung-RADS 1: NEGATIVE S Modifier (Significant or Potentially Significant Findings): None present No suspicious nonpulmonary findings. RECOMMENDATIONS: 12 month screening low dose CT -------- FINAL REPORT -------- Dictated By: Don Camp Dictated Date: 12/20/2024 14:48 ET Assigned Physician: Don Camp Reviewed and Electronically Signed By: Don Camp Signed Date: 12/20/2024 14:59 ET Workstation ID: [id number] Transcribed By: Self Edit Transcribed Date: 12/20/2024 14:48 ET Narrative 12/20/2024 2:59 PM EST EXAMINATION: CT CHEST WITHOUT CONTRAST LUNG CANCER SCREENING, LOW DOSE CLINICAL INFORMATION: Lung cancer screening. ??Current smoker COMPARISON: Portions of a previous CT 12/19/2023 ?? TECHNIQUE: Multidetector CT. Examination of the chest. Examination of the chest without IV contrast. Reformatting in the coronal and sagittal planes. Device: P[place] DLP: 105 mGy-cm CTDI: 2.85 Dose optimization was performed including the use of low-dose iterative reconstruction technique with automatic exposure control based on patient size. Type of contrast: None Volume of IV contrast: None Volume of contrast discarded: 0 mL FINDINGS: LUNG: No abnormality of the trachea or mainstem bronchi. There are secretions extending into the orifice of the left lower lobe bronchus. No focal pneumonia. ?? LUNG NODULES: There are no suspicious nodules or masses. No suspicious interval change. OTHER PULMONARY: ??At least moderately severe centrilobular emphysema. There are a few reticular opacities greatest in the dependent aspect of the right lung. There are linear opacities at the bases bilaterally which likely represent mild areas of fibrosis. There is an unchanged bandlike opacity in the posteromedial right lower lobe. There is no honeycomb formation. MEDIASTINUM: ??There are no enlarged mediastinal or hilar lymph nodes. No suspicious abnormalities of the esophagus CARDIAC: The heart is not enlarged. No pericardial fluid or thickening ?? There are moderate coronary calcifications. VASCULAR: There is no thoracic aortic aneurysm. The main pulmonary artery is normal caliber ?? PLEURA: There is no pleural fluid or pneumothorax ?? AXILLA/CHEST WALL: There are no enlarged axillary lymph nodes. No chest wall mass demonstrated ?? VISUALIZED UPPER ABDOMEN: ??No suspicious abnormality on limited assessment of the visualized upper abdomen. Unchanged small round low attenuating enlargement in the medial limb of the left adrenal gland likely a lipid rich adenoma. MUSCULOSKELETAL: No suspicious focal bony lesion demonstrated. Procedure Note Don Camp MD - 12/20/2024 EXAMINATION: CT CHEST WITHOUT CONTRAST LUNG CANCER SCREENING, LOW DOSE CLINICAL INFORMATION: Lung cancer screening. Current smoker COMPARISON: Portions of a previous CT 12/19/2023 TECHNIQUE: Multidetector CT. Examination of the chest. Examination of the chest without IV contrast. Reformatting in the coronal and sagittal planes. Device: [employer] [place] DLP: 105 mGy-cm CTDI: 2.85 Dose optimization was performed including the use of low-dose iterativereconstruction technique with automatic exposure control based on patientsize. Type of contrast: None Volume of IV contrast: None Volume of contrast discarded: 0 mL FINDINGS: LUNG: No abnormality of the trachea or mainstem bronchi. There aresecretions extending into the orifice of the left lower lobe bronchus. Nofocal pneumonia. LUNG NODULES: There are no suspicious nodules or masses. No suspicious interval change. OTHER PULMONARY: At least moderately severe centrilobular emphysema.There are a few reticular opacities greatest in the dependent aspect ofthe right lung. There are linear opacities at the bases bilaterally whichlikely represent mild areas of fibrosis. There is an unchanged bandlikeopacity in the posteromedial right lower lobe. There is no honeycombformation. MEDIASTINUM: There are no enlarged mediastinal or hilar lymph nodes. Nosuspicious abnormalities of the esophagus CARDIAC: The heart is not enlarged. No pericardial fluid or thickening There are moderate coronary calcifications. VASCULAR: There is no thoracic aortic aneurysm. The main pulmonary arteryis normal caliber PLEURA: There is no pleural fluid or pneumothorax AXILLA/CHEST WALL: There are no enlarged axillary lymph nodes. No chestwall mass demonstrated VISUALIZED UPPER ABDOMEN: No suspicious abnormality on limited assessmentof the visualized upper abdomen. Unchanged small round low attenuatingenlargement in the medial limb of the left adrenal gland likely a lipidrich adenoma. MUSCULOSKELETAL: No suspicious focal bony lesion demonstrated. IMPRESSION: No suspicious mass or nodule. No suspicious interval change. Underlying emphysema and at least mild interstitial lung disease. LUNG RADS: Lung-RADS 1: NEGATIVE S Modifier (Significant or Potentially Significant Findings): Nonepresent No suspicious nonpulmonary findings. RECOMMENDATIONS: 12 month screening low dose CT -------- FINAL REPORT -------- Dictated By: Don Camp Dictated Date: 12/20/2024 14:48 ET Assigned Physician: Don Camp Reviewed and Electronically Signed By: Don Camp Signed Date: 12/20/2024 14:59 ET Workstation ID: [id number] Transcribed By: Self Edit Transcribed Date: 12/20/2024 14:48 ET Stephanie Ruiz MD IM CT PROCEDURES Final Result from Last 3 Months Insurance [employer] MEDICARE ADVANTAGE [place] Advance Directives Documents on File Type Date Recorded Patient Printer Apprentice Expl anation Health Care Decision (hx) 11/23/2017 AD ADAME DIRECTIVE Health Care Decision (hx) 11/23/2017 AD ADAME DIRECTIVE Health Care Decision (hx) 11/23/2017 AD ADAME DIRECTIVE Health Care Decision (hx) 11/23/2017 AD ADMAE DIRECTIVE Health Care Decision (hx) 11/23/2017 AD ADAME DIRECTIVE Care Teams Lay Health Advocate Relationship Specialty Start Date End Date Mich Worthington MD [address] [place] [address] PCP - General Family Medicine 12/15/24
--- OUTSIDE RECORDS SUMMARY | 2025-02-09 10:03 | XMS_ITS | Encounter Summary ---
Author Organization [employer] Address [address] [place] [address] 7 [place] [address] Care Team Providers Care Milk Collector Name Role Phone Unavailable Primary Care Provider Unavailabl e Reason for Visit * Reason Onset Date Comments case back from lab 04/25/2024 Encounter Details Date Type Department Care Team (Late st Contact Info) Description 04/25/2024 Telephone [facility] [address] [place], [place] [phone] [facility] Burnett [facility] [address] [place], [place] [phone] case back from lab Social History Tobacco Use Types Packs/Day Years [...] * Telephone Encounter - Kay Min - 05/09/2024 10:22 AM EDT Sent message via email to vest front presser as well today as patient is looking to hear back and still hasno response on case. Please reach out to patient DR * Telephone Encounter - Kay Min - 04/25/2024 10:55 AM EDT This message was sent to Dr. Sawant on [facility] side. Resending again. Dr Kaplan name and office is the onethat is selected DR Patient states that they were expect call from office to schedule. Looking for status on case if back from lab. Please reach out to patient DR * Telephone Encounter - Dusty Green DMD - 04/25/2024 10:22 AM EDT Please follow up with * Telephone Encounter - Kay Min - 04/25/2024 10:03 AM EDT Patient states that they were expect call from office to schedule. Looking for status on case if back from lab. Please reach out to patient DR documented in this encounter Plan of Treatment Not on file documented as of this encounter Visit Diagnoses Not on filedocumented in this encounter
--- OUTSIDE RECORDS SUMMARY | 2025-02-09 10:03 | XMS_ITS | Clinical Summary ---
Author Organization [employer] Address [address] [facility] [address] [place] [address] Care Team Providers Care Dolly Operator Name Role Phone Unavailable Primary Care Provider Unavailabl e Allergies Active Allergy Reactions Criticality Noted Date Comments Simvastatin 11/30/2023 Other reaction(s): Myalgia Medications ALPRAZolam (Xanax) 0.25 MG tablet Take 0.25 mg by mouth if needed each day. 11/16/2023 Active citalopram (CeleXA) 20 MG tablet Take 20 mg by mouth in the morning. 11/03/2023 Active colestipol (Colestid) 1 g tablet Take 1 g by mouth in the morning. 10/23/2023 Active ezetimibe (Zetia) 10 MG tablet Take 10 mg by mouth in the morning. 10/25/2023 Active Active Problems Problem Noted Date Diagnosed Date Complete edentulism 11/30/2023 Social History Tobacco Use Types Packs/Day Years Used Date Smoking Tobacco: Some Days Cigarettes Smokeless Tobacco: Never Tobacco Cessation:Ready to Q uit: Not Asked; Counseling Given: Not Answered Sex and Gender Information Value Date Recorded Sex Assigned at Male 11/11/2023 11:22 AM EST Legal Sex Male 11:21 AM EST Gender Identity Male 11/11/2023 11:22 AM EST Sexual Orientation Straight 11/11/2023 11 :22 AM EST Plan of Treatment Health Maintenance Due Date Last Done Comments CT Colonography 1954 Colonoscopy 1954 Colorectal Cancer Screening 1954 Dental Oral Exam 1954 Dental Prophylaxis 1954 Dental X-Ray: Bitewings 1954 Depression Screening 1954 FIT DNA/Cologuard 1954 FIT 1954 FOBT 1954 Lipid Panel 1954 SDOH Screening 1954 Sigmoidoscopy 1954 Alcohol/Substance Use Screening 1966 Hepatitis C Screening 1972 RSV Patients and Patients Aged 60 years or older (1 - Risk 60-74 years 1-dose series) 2014 Zoster Vaccines (2 of 2) 05/03/2019 03/08/2019 COVID-19 Vaccine (5 - season) 2024 01/18/2024, 10/06/2022, 10/29/2021, Additional history exists Influenza Vaccine (#1) 2024 , 10/06/2022, 08/30/2020, Additional history exists Pneumococcal Vaccine: 50+ Years (3 of 3 - PCV20 or PCV21) 01/01/2025 01/01/2020, 12/14/2014 Tobacco Screening 08/31/2025 08/31/2024 Dental X-Ray: Full Mouth 12/01/2026 11/30/2023 DTaP/Tdap/Td Vaccines (3 - Tdap) 04/08/2029 04/08/2019, 11/23/2012 HIB Vaccines Aged Out No longer eligi [...] patient's age to complete this topic Meningococcal Vaccine Aged Out No scarlet corey eligible based on patient's age to complete this topic RSV under 20 months Aged Out No longe r eligible based on patient's age to complete this topic Rotavirus Vaccines Aged Out No longer eligible based on patient's age to complete this topic Procedures Procedure Name Priority Date/Time Associated Diagnosis Comments PANORAMIC RADIOGRAPHIC IMAGE Routine 11/30/2023 11:00 AM EST from Last 3 Months or Most Recently Relevant to Health Maintenance Insurance [facility]
== END 2025-02-09 10:49 | disposition home or self-care (01) ==
LOC: HO.HMCFM 09:18
PROVIDERS: PCP Family Medicine; Visit Provider Family Medicine
DX: E78.5 Hyperlipidemia, unspecified (principal); Z12.11 Encounter for screening for malignant neoplasm of colon; Z12.5 Encounter for screening for malignant neoplasm of prostate

== ENCOUNTER → 2025-02-09 09:17 | Outpatient (BNVA) | payer MEDICARE, SELFPAY | PROVIDERS: PCP Family Medicine; Visit Provider Family Medicine | DX: R73.03 Prediabetes (principal); E78.5 Hyperlipidemia, unspecified; R97.20 Elevated prostate specific antigen [PSA]; F41.8 Other specified anxiety disorders | CPT/HCPCS: 99212 ==

== ENCOUNTER 2025-05-03 08:57 | Outpatient (REF) | payer MEDICARE, SELFPAY ==
--- OUTSIDE RECORDS SUMMARY | 2025-05-03 09:38 | XMS_ITS | Clinical Summary ---
Author Organization [employer] Address [address] [facility] 7[address] [place] [address] Care Team Providers Care Sales And Marketing Director Name Role Phone Unavailable Primary Care Provider [...] Use Screening 1966 Hepatitis C Screening 1972 Zoster Vaccines (2 of 2) 05/03/2019 03/08/2019 COVID-19 Vaccine (5 - season) 2024 01/18/2024, 10/06/2022, 10/29/2021, Additional history exists Pneumococcal Vaccine: 50+ Years (3 of 3 - PCV20 or PCV21) 01/01/2025 01/01/2020, 12/14/2014 Influenza Vaccine (Season Ended) 2025 01/18/2024, 10/06/2022, 08/30/2020, Additional history exists Tobacco Screening 08/31/2025 08/31/2024 Dental X-Ray: Full Mouth 12/01/2026 11/30/2023 DTaP/Tdap/Td Vaccines (3 - Tdap) 04/08/2029 04/08/2019, 11/23/2012 RSV Patients and Patients Aged 60 years or older Completed 01/18/2024 HIB Vaccines Aged Out No [...] age to complete this topic Meningococcal B Vaccine Aged Out No l onger eligible based on patient's age to complete [...] Most Recently Relevant to Health Maintenance Insurance [facility]
[2025-05-03 11:53] LABS: Anion Gap 14 (12-20); Blood Urea Nitrogen 8 mg/dL (9-16); Carbon Dioxide 27 mmol/L (22-29); Chloride 103 mmol/L (96-108); Estimated Glomerular Filt Rate > 60; Glucose Random 128 mg/dL (60-115); Potassium 4.1 mmol/L (3.3-5.1); Sodium 140 mmol/L (135-145)
[2025-05-03 12:13] LABS: Prostate Specific Antigen Scr 6.15 ng/mL (<0.05-4.0)
== END 2025-05-03 08:58 | disposition home or self-care (01) ==
LOC: HO.WFDLDS 08:57
PROVIDERS: Visit Provider Family Medicine
DX: Z00.00 Encounter for general adult medical examination without abnormal findings (principal); R97.20 Elevated prostate specific antigen [PSA]; Z12.5 Encounter for screening for malignant neoplasm of prostate
CPT/HCPCS: 36415; 80048; 84153

== ENCOUNTER → 2025-05-09 08:51 | Outpatient (AMB) | payer MEDICARE, SELFPAY ==
--- NOTE | 2025-05-09 08:46 | A.OFFPC_ITS ---
Intake Visit Reasons: f/u labs Intake Note: patient is scheduled to review labs with pcp Allergies simvastatin Allergy (Intermediate, Verified 05/09/25 08:47) Anxiety Tobacco use date assessed: 02/17/24 Dental Screening Dental Screen Date: 02/17/24 HPI f/u labs HPI Details 69 y/o male presents to f/u labs, health maintenance via telemedicine. Had elevated PSA - rechecking. Labs drawn 05/03/25. Reviewed labs with pt. PSA elevated at 6.15 ng/mL. Random glucose 128. Has been watching the sugars and starches in his diet. HPI Comments History of Present Illness Details Documentation assistance for Mich Worthington MD, was provided by Luis Scott, [employer] Windows Engineer on 05/09/2025 at 9:03 AM EST. I, Dr. Worthington, have read, observed, and verified documentation. [facility] Social History Housing: House Patient Tobacco Use Status: Former Tobacco user e-Cigarette/Vaping Use: Never Used service: No Current occupational status: retired Cognitive needs: No Hearing needs: No Vision needs: No Questionnaire Thrive Questionnaire Date Thrive assessed: 11/10/24 LESLIE-7 AMB Questionnaire LESLIE-7 Date LESLIE - 7 assessed: 02/17/24 Source: Developed by Drs. Yahir Jackson, Teri Shoemaker, David Jimenez and colleagues, with an educational louis from [employer]. Review of Systems Const Denies chills, Denies fatigue, Denies fever(s), Denies headache(s) and Denies weakness ENT Denies dizziness and Denies headache(s) Card Denies dyspnea Resp Denies cough, Denies dyspnea, Denies wheezing and Denies other (shortness of breath) Musc Denies numbness and Denies tingling Neuro Denies dizziness, Denies headache(s), Denies numbness, Denies tingling and Denies weakness Psych Denies anxiety and Denies depression Endo Denies fatigue Aller/Immun Denies wheezing Physical exam (Primary Care) Tobacco/Smoking Status: Tobacco use Status Tobacco use date assessed 02/17/24 05/09/25 08:48 Patient Tobacco Use Status Former Tobacco user 05/09/25 08:48 e-Cigarette/Vaping Use Never Used 05/09/25 08:48 Thrive Assessment: Date of Thrive Assessment Date Thrive assessed 11/10/24 05/09/25 08:48 Telehealth Telehealth Telehealth Platform: Telephone Location of provider rendering services: practice address Location of patient: address on file Patient Identification confirmed using: Name, : Yes Telehealth method: voice only Patient verbally consented to treatment: Yes Patient verbally consented to billing insurance company: Yes Patient informed of any privacy concerns related to visit: Yes Minutes spent on Phone/Video with Pt.: 7 Coding Level of Care Code Tele Est Pt Level 2 (91518) Diagnoses Elevated PSA R97.20 Pre-diabetes R73.03 Assessment & Plan Assessment & Plan (1) Elevated PSA: Code(s): R97.20 - Elevated prostate specific antigen [PSA] Category: Medical Plan: PSA?was?elevated?at?prior?check?and?more?recently?has?risen?further to 6.15. Patient?does?note?some?urinary?frequency?without?dysuria Referred?to?urology (2) Pre-diabetes: Code(s): R73.03 - Prediabetes Category: Medical Plan: Blood?sugars?are?elevated He?is?working?on?diet?low?in?sugars?and?starches
--- OUTSIDE RECORDS SUMMARY | 2025-05-09 08:58 | XMS_ITS | Clinical Summary ---
Author Organization [employer] Address [address] [facility] [address] [place] [address] Care Team Providers Care Net Mender Name Role Phone Unavailable Primary Care Provider [...] Most Recently Relevant to Health Maintenance Insurance [facility]
--- OUTSIDE RECORDS SUMMARY | 2025-05-09 08:58 | XMS_ITS | Clinical Summary ---
Author Organization [facility] [address] [facility] Address [address] [place] [address] Phone Care Team Providers Care Records Coordinator Name Role Phone Mich Worthington MD Primary Care Provider Medical History Medical History Date Comments Major depressive disorder, s cassandra episode 09/24/2017 DX:Major depressive disorder , single episode COPD (chronic obstructive pu lmonary disease) (CMS/HCC V24, CMS/HCC V28) DX:COPD (chronic o bstructive pulmonary disease) (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 [...] on patient's age to complete this topic Insurance AETNA MEDICARE ADVANTAGE [place] Advance Directives Documents on File Type Date Recorded Patient Patient Care Technician Expl anation Health Care Decision (hx) 11/23/2017 AD ADAME DIRECTIVE Health Care Decision (hx) 11/23/2017 AD ADAME DIRECTIVE Health Care Decision (hx) 11/23/2017 AD ADAME DIRECTIVE Health Care Decision (hx) 11/23/2017 AD ADAME DIRECTIVE Health Care Decision (hx) 11/23/2017 AD ADAME DIRECTIVE Care Teams Records Coordinator Relationship Specialty Start Date End Date Mich Worthington MD [address] [place] [address] PCP - General Family Medicine 12/15/24
== END ==
LOC: HO.HMCFM 08:51
PROVIDERS: PCP Family Medicine; Visit Provider Family Medicine
DX: R97.20 Elevated prostate specific antigen [PSA] (principal); R73.03 Prediabetes

== ENCOUNTER 2025-05-16 11:03 | Outpatient (AMB) | payer MEDICARE, SELFPAY ==
--- NOTE | 2025-05-16 11:09 | A.OFFVIS_ITS ---
Intake Visit Reasons: elevated PSA Intake Note: Patient is present for ELEVATED PSA Urology Medication:NONE Antibiotic Allergy:SIMVASTSTIN Blood Thinner:NONE Solar Installer Pv Required: No Allergies simvastatin Allergy (Intermediate, Verified 05/16/25 11:11) Anxiety HPI Comments Details: Darrion is a pleasant male. He is a patient of Dr. Worthington. He is seen for the following urologic conditions - elevated PSA Elevated PSA He presents for Initial evaluation of elevated PSA Lower Urinary Tract Symptoms include - has noticed progressive urinary symptoms over past 6 months including weakness of stream, incomplete emptying. Minimal nocturia increasing bother Investigations include - PSA - 6.2 - NIRALI 2+ soft - a transrectal ultrasound no - a prostate MRI note - TRUS Biopsy - none Individualized Prostate Cancer Risk Calculator - PCPT Calculator - 10% risk high-grade disease Associated conditions include dyslipidemia Therapeutic plan will be - repeat PSA, start finasteride, 4 month follow-up PSA [facility] Social History Housing: House Patient Tobacco Use Status: Former Tobacco user e-Cigarette/Vaping Use: Never Used service: No Current occupational status: retired Cognitive needs: No Hearing needs: No Vision needs: No Review of Systems Const Denies chills and Denies fever(s) Card Reports no additional complaints and Denies syncope Resp Denies cough GI Denies abdominal pain and Denies heartburn Reports as per HPI and Denies change in libido Neuro Denies syncope Psych Denies change in libido Endo Denies change in libido Physical Exam Const General: cooperative, healthy appearing, comfortable and no acute distress Orientation/consciousness: patient oriented x3 HEENT Face and sinus: Yes normal facial exam Mouth: moist mucous membranes Neck Neck: Yes normal visual inspection, Yes full ROM and Yes trachea midline Chest Chest palpation & inspection: normal inspection of the chest Resp Effort & Inspection: normal respiratory effort, able to speak in complete sentences and no respiratory distress GI Inspection: Yes normal to inspection Rectal Exam - Male: Yes normal sphincter tone and Yes prostate normal Male General Exam: Yes normal external exam Penis: normal penis and circumcised Meatus: meatus normal Scrotum: scrotum normal Testes: Testes normal Back/Spine/Pelvis Cervical Spine: normal cervical lordosis Thoracic/Lumbar Spine: thoracic and lumbar spine normal to inspection Skin General skin exam: no rashes or lesions noted Neuro General: patient oriented x3, gait normal, tone normal and moves all extremities Extrem General: Yes normal to inspection and Yes capillary refill normal Results AMB Urinalysis, Automated UA Leukoctes 70 Thelma/uL Last Edit by ISMA Dior on 05/16/25 11:29 UA Nitrite Negative Last Edit by ISMA Dior on 05/16/25 11:29 UA Urobilinogen 3.5 mg/dL Last Edit by ISMA Dior on 05/16/25 11:2 9 UA Protein 0 mg/dL Last Edit by ISMA Dior on 05/16/25 11:29 UA pH 7.0 Last Edit by Janie Diamond CCM on 05/16/25 11:29 UA Blood 0 Hector/uL Last Edit by ISMA Dior on 05/16/25 11:29 UA Specific Valera 1.010 Last Edit by ISMA Dior on 05/16/25 11: 29 UA Ketone Negative Last Edit by ISMA Dior on 05/16/25 11:29 UA Bilirubin 0 mg/dL Last Edit by ISMA Dior on 05/16/25 11:29 UA Glucose 0 mg/dL Last Edit by ISMA Dior on 05/16/25 11:29 Results Reviewed Results Reviewed: Laboratory Last Values Urine pH (Auto) 7.0 05/16/25 11:28 Specific Valera (Auto) 1.010 05/16/25 11:28 Urine Protein (Auto) 0 mg/dL 05/16/25 11:28 Glucose (UA)(Auto) 0 mg/dL 05/16/25 11:28 Urine Ketones (Auto) Negative 05/16/25 11:28 Urine Blood (Auto) 0 Hector/uL 05/16/25 11:28 Urine Nitrite (Auto) Negative 05/16/25 11:28 Urine Bilirubin (Auto) 0 mg/dL 05/16/25 11:28 Urine Urobilinogen (Auto) 3.5 mg/dL 05/16/25 11:28 Leukocyte Esterase (Auto) 70 Thelma/uL 05/16/25 11:28 Assessment & Plan Assessment & Plan (1) Elevated PSA: Code(s): R97.20 - Elevated prostate specific antigen [PSA] Category: Medical (2) Bladder outlet obstruction: Code(s): N32.0 - Bladder-neck obstruction Category: Medical Plan Ultrasound bladder Repeat PSA Start finasteride with 4 month follow-up Orders: Orders US bladder Today R97.20 - Elevated prostate specific antigen [PSA] Prostate Specific Antigen 4 Months N32.0 - Bladder-neck obstruction AMB Urinalysis Automated Today Z13.9 - Encounter for screening, unspecified PSA,Total (Free>4and<10) Today R97.20 - Elevated prostate specific antigen [PSA] Medications: New finasteride 5 mg PO DAILY 90 tabs 1RF 90 days N32.0 - Bladder-neck obstruction Patient Instructions: This note is constructed using voice recognition software. While every effort has been made to ensure accuracy fur sorter errors may have been included. Imaging studies, laboratory and physical exam results were discussed and reviewed in detail. No major barriers to patient understanding were identified. An opportunity to ask questions regarding the treatment plan was provided. All questions were answered. The patient expressed understanding and agreement with the above treatment plan. The patient is aware they should contact our office by phone for worsening of their current condition or the appearance of new urologic symptoms. Compliance is encouraged with any medications and followup testing that is ordered. It is a privilege to participate in the urologic care of your patient. If you have any questions or concerns regarding treatment for the above conditions, or other urologic issues, please do not hesitate to contact me. The office telephone contact is [phone]. Sincerely, Dr Jonny Streeter MD, [facility] - Urology Compassionate Specialist Care for the Genitourinary System Coding Level of Care Code New Pt Level 4 (10871) Diagnoses Elevated PSA R97.20 Bladder outlet obstruction N32.0
--- OUTSIDE RECORDS SUMMARY | 2025-05-16 12:15 | XMS_ITS | Clinical Summary ---
Author Organization [employer] Address [address] [facility] [address] [place] [address] Care Team Providers Care Node Js Developer Name Role Phone Unavailable Primary Care Provider [...] or PCV21) 01/01/2025 01/01/2020, 12/14/2014 Influenza Vaccine (#1) 2025 , 10/06/2022, 08/30/2020, Additional history exists Tobacco Screening [...] Most Recently Relevant to Health Maintenance Insurance [facility]
--- OUTSIDE RECORDS SUMMARY | 2025-05-16 12:15 | XMS_ITS | Clinical Summary ---
Author Organization [facility] [address] [facility] Address [address] [place] [address] Phone Care Team Providers Care Cooker Meal Name Role Phone Mich Worthington MD Primary Care Provider Medical History Medical History Date Comments Major depressive disorder, s cassandra episode 09/24/2017 DX:Major depressive disorder , single episode COPD (chronic obstructive pu lmonary disease) (CMS/HCC V24, CMS/HCC V28) DX:COPD (chronic o bstructive pulmonary disease) ([facility]) 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 [...] 2025 , 10/06/2022, 08/30/2020, Additional history exists DTaP,Tdap,and Td [...] Documents on File Type Date Recorded Patient Field Machinist Expl anation Health Care Decision (hx) 11/23/2017 AD ADAME DIRECTIVE Health Care Decision (hx) 11/23/2017 AD ADAME DIRECTIVE Health Care Decision (hx) 11/23/2017 AD ADAME DIRECTIVE Health Care Decision (hx) 11/23/2017 AD ADAME DIRECTIVE Health Care Decision (hx) 11/23/2017 AD ADAME DIRECTIVE Care Teams Cooker Meal Relationship Specialty Start Date End Date Mich Worthington MD [address] [place] [address] PCP - General Family Medicine 12/15/24
== END 2025-05-16 11:35 | disposition home or self-care (01) ==
LOC: HO.HUSH 11:04
PROVIDERS: PCP Family Medicine; Visit Provider Urology
DX: R97.20 Elevated prostate specific antigen [PSA] (principal); N32.0 Bladder-neck obstruction; Z13.9 Encounter for screening, unspecified
CPT/HCPCS: 99204

== ENCOUNTER → 2025-05-16 11:03 | Outpatient (BNVA) | payer MEDICARE, SELFPAY | PROVIDERS: PCP Family Medicine; Visit Provider Urology | DX: R97.20 Elevated prostate specific antigen [PSA] (principal); N32.0 Bladder-neck obstruction | CPT/HCPCS: 81003; 99202 ==

== ENCOUNTER 2025-05-16 11:48 | Outpatient (REF) | payer MEDICARE, SELFPAY ==
[2025-05-16 13:52] LABS: PSA,Total (Free>4and<10) 7.22 ng/mL (0.00-4.00)
[2025-05-17 12:03] LABS: Free Prostate Spec Ag 2.0 ng/mL; Percent Free Prostate Spec Ag 29 % (calc) (>25)
== END 2025-05-16 11:49 | disposition home or self-care (01) ==
LOC: HO.10HDL 11:48
PROVIDERS: Visit Provider Urology
DX: Z12.5 Encounter for screening for malignant neoplasm of prostate (principal); R97.20 Elevated prostate specific antigen [PSA]
CPT/HCPCS: 36415; 84153; 84154

== ENCOUNTER 2025-08-13 09:38 | Outpatient (AMB) | payer MEDICARE, SELFPAY ==
--- NOTE | 2025-08-13 09:46 | MHC.PC.OV ---
Vital Signs 08/13/25 09:51 08/13/25 10:30 Height 5 ft 7.5 in Weight 152 lb 6 oz BMI 23.5 BP 168/74 H 157/74 H Blood Pressure Location Lt brachial Rt brachial Position Sitting Sitting Respiration 12 Pulse 67 Pulse Source Pulse Oximeter Temp 97.6 F Temp Source Oral Pulse Oximetry (%) 96 Oxygen Delivery Method Room Air Intake Visit Reasons: f/u lipids, pre-diabetes Intake Note: patient here for follow up on pre-diabetes and lipids Wildlife Control Operator Required: No Allergies simvastatin Allergy (Intermediate, Verified 08/13/25 09:50) Anxiety Medication List - Last Reconciled 08/13/25 by Mich Worthington MD albuterol sulfate 90 mcg/actuation 2 puffs inhalation Q4-6H PRN alprazolam 0.25 mg PO DAILY PRN 30 days atorvastatin 40 mg PO BEDTIME 90 days citalopram 20 mg PO DAILY 90 days ezetimibe 10 mg PO DAILY 90 days ezetimibe 10 mg PO DAILY 90 days finasteride 5 mg PO DAILY 90 days triamcinolone acetonide (Nasacort) 2 sprays intranasal DAILY 30 days Tobacco use date assessed: 08/13/25 Fall risk assessment: No Falls in past year Last assessed Fall Risk: 08/13/25 Dental Screening Dental Screen Date: 08/13/25 Did you have a dental visit in the last 12 months?: No Did you have a dental problem in the last 6 months where you did not have access to dental care?: No Was dental information given to patient?: Patient declined (false teeth) HPI f/u lipids, pre-diabetes HPI Details 69 y/o male presents to f/u lipids, pre-diabetes. Continues to use his finasteride. Reports ongoing urinary frequency. Prior A1c 6.2%. A1c today 08/13/25 is 6.2%. Has been getting regular exercise. Notes he has been off his zetia and possibly artovastatin. BP today elevated at 168/74. [facility] Social History Housing: House Patient Tobacco Use Status: Former Tobacco user e-Cigarette/Vaping Use: Never Used service: No Current occupational status: retired Current occupational exposures/hazards: No Cognitive needs: No Hearing needs: No Vision needs: No Questionnaire Thrive Questionnaire Date Thrive assessed: 11/10/24 I am a: Patient What is your living situation today?: I have a steady place to live Within the past 12 months, did the food you bought not last and you didn't have the money to get more?: Never true Within the past 12 months, did you worry whether your food would run out before you got money to buy more?: Never true Do you have trouble paying for medicines?: No Do you have trouble getting transportation to medical appointments?: No Do you have trouble paying your heating and electricity bill?: No Do you have trouble taking care of your child, family member or friend?: No Do you have trouble with day-to-day activities such as bathing, preparing meals, shopping, managing finances, etc.?: No Are you currently unemployed and looking for a job?: No Are you interested in more education?: No Please select the resources that you would like help with: None Currently or been in a relationship where the following occur: No concerns reported THRIVE Score: 0 LESLIE-7 AMB Questionnaire LESLIE-7 Date LESLIE - 7 assessed: 02/17/24 Source: Developed by Drs. Yahir Jackson, Teri Shoemaker, David Jimenez and colleagues, with an educational louis from [employer]). Review of Systems Const Denies chills, Denies fatigue, Denies fever(s), Denies headache(s) and Denies weakness ENT Denies dizziness and Denies headache(s) Card Denies dyspnea Resp Denies cough, Denies dyspnea, Denies wheezing and Denies other (shortness of breath) Musc Denies numbness and Denies tingling Neuro Denies dizziness, Denies headache(s), Denies numbness, Denies tingling and Denies weakness Psych Denies anxiety and Denies depression Endo Denies fatigue Aller/Immun Denies wheezing Physical exam (Primary Care) Vital Signs: Last Vital Signs Temp 97.6 F 08/13/25 09:51 Pulse 67 08/13/25 09:51 Resp 12 08/13/25 09:51 BP 168/74 H 08/13/25 09:51 Pulse Ox 96 08/13/25 09:51 Oxygen Delivery Method Room Air 08/13/25 09:51 BMI result Body Mass Index 23.5 Tobacco/Smoking Status: Tobacco use Status Tobacco use date assessed 08/13/25 08/13/25 09:54 Patient Tobacco Use Status Former Tobacco user 08/13/25 09:48 e-Cigarette/Vaping Use Never Used 08/13/25 09:48 Thrive Assessment: Date of Thrive Assessment Date Thrive assessed 11/10/24 08/13/25 09:48 Currently or been in a relationship where the following occur: No concerns reported Const General: well developed; No acute distress Nutritional Appearance: well nourished Orientation/consciousness: patient oriented x3 HENMT Head: Yes normocephalic and Yes atraumatic Eyes General: appearance normal, both eyes and all related structures Pupils: Equal, round and reactive pupils present EOM: EOMs intact bilaterally Resp Effort & Inspection: normal respiratory effort Auscultation: clear to auscultation bilaterally Cardio Rate: regular rate Rhythm: regular rhythm Heart sounds: S1 normal heart sound present, S2 normal heart sound present, no gallops, no murmurs and no rubs Neuro General: patient oriented x3 and gait normal Cranial nerves: Yes Equal, round and reactive pupils present Psych Affect: normal affect Results AMB Hemoglobin A1c AMB Hemoglobin A1c 6.2 % Last Edit by Brittney Jacobo CMA on 08/13/25 10:03 Results Reviewed Results Reviewed: Laboratory Last Values Hgb A1c (Clinic) 6.2 % (4.0-6.0) H 08/13/25 10:02 Coding Level of Care Code Est Pt Level 4 (55177) Diagnoses Hyperlipidemia E78.5 Pre-diabetes R73.03 Bladder outlet obstruction N32.0 Urinary frequency R35.0 Elevated blood pressure reading R03.0 Assessment & Plan Assessment & Plan (1) Hyperlipidemia: Code(s): E78.5 - Hyperlipidemia, unspecified Category: Medical Plan: Patient notes that he has been off of his Zetia and possibly atorvastatin though he says he has the atorvastatin at home still Will have him resume these He has not gotten his labs drawn and we will have him recheck lipids at next visit He can discontinue the Zetia if it is causing problems. (2) Pre-diabetes: Code(s): R73.03 - Prediabetes Category: Medical Plan: A1c 6.2% in pre diabetes range Continue working on a diet low in sugars and starches (3) Bladder outlet obstruction: Code(s): N32.0 - Bladder-neck obstruction Category: Medical (4) Urinary frequency: Code(s): R35.0 - Frequency of micturition Category: Medical (5) Elevated blood pressure reading: Code(s): R03.0 - Elevated blood-pressure reading, without diagnosis of hypertension Category: Medical Plan Urinary frequency and history of bladder outlet obstruction He is on finasteride Follow-up with urology as recommended Blood pressure is high add presentation in improves slightly with relaxation. Still high. Previously has been okay. Will have him return in couple months. Watch salt and sodium diet. Continue exercise. If still elevated will discuss medication. He will return for a nurse visit to check his blood pressure next week. He will follow-up with me in about 2 months to follow-up hyperlipidemia and elevated blood pressure. Has been off of cholesterol medication. Resuming atorvastatin and Zetia today. Orders: Orders AMB Hemoglobin A1c Today R73.03 - Prediabetes Medications: New blood pressure monitor Automatic, Digital. Dx: I10. Daily As directed, 999 days/lifetime 1 ea 0RF I10 - Essential (primary) hypertension Changed From ezetimibe 10 mg PO DAILY 90 tabs 3RF To ezetimibe 10 mg PO DAILY 90 days 90 tabs 3RF From ezetimibe 10 mg PO DAILY 90 tabs 3RF To ezetimibe 10 mg PO DAILY 90 days 90 tabs 3RF
[2025-08-13 09:51] VITALS: BP 168/74; PULSE 67; RESP 12; TEMP 36.4; O2SAT 96; BMI 23.5
[2025-08-13 10:30] VITALS: BP 157/74
--- OUTSIDE RECORDS SUMMARY | 2025-08-13 11:03 | XMS_ITS | Clinical Summary ---
Author Organization [employer] Address [address] [facility] 7t [place] [address] Care Team Providers Care Vacuum Extractor Operator Name Role Phone Unavailable Primary Care [...] Zoster Vaccines (2 of 2) 05/03/2019 03/08/2019 Pneumococcal Vaccine: 50+ Years (3 of 3 - PCV20 or PCV21) 01/01/2025 01/01/2020, 12/14/2014 COVID-19 Vaccine (5 - season) 2025 01/18/2024, 10/06/2022, 10/29/2021, Additional history exists Influenza Vaccine (#1) 2025 , 10/06/2022, 08/30/2020, [...] Most Recently Relevant to Health Maintenance Insurance [facility]
--- OUTSIDE RECORDS SUMMARY | 2025-08-13 11:04 | XMS_ITS | Encounter Summary ---
Author Organization [employer] Address [address] [facility] 7t [place] [address] Care Team Providers Care Hadoop Administrator Name Role Phone Unavailable Primary Care Provider Unavailabl e Encounter Details Date Type Department Care Team (Late st Contact Info) Description 03/20/2024 Telephone [facility] [address] [place], [place] [phone] Lokesh Burnett BDS [address] [place], [place] [phone] Social History Tobacco Use Types Packs/Day Years [...]
--- OUTSIDE RECORDS SUMMARY | 2025-08-13 11:04 | XMS_ITS | Encounter Summary ---
Author Organization [employer] Address [address] [place] [address] [address] [place] [address] Care Team Providers Care Opto Mechanical Technician Name Role Phone Unavailable Primary Care Provider Unavailabl e Reason for Visit * Reason Onset Date Comments case back from lab 04/25/2024 Encounter Details Date Type Department Care Team (Late st Contact Info) Description 04/25/2024 Telephone [facility] D[facility] [address] [place], [place] [phone] Lokesh Burnett BDS [address] [place], [place] [phone] case back from lab Social History Tobacco [...] AM EDT Sent message via email to front end web developer as well today as patient is looking to hear back and still hasno response on case. Please reach out to patient DR * Telephone Encounter - Kay Min - 04/25/2024 10:55 AM EDT This message was sent to Dr. Sawant on [facility] side. Resending again. Dr Kaplan name [...]
--- OUTSIDE RECORDS SUMMARY | 2025-08-13 11:04 | XMS_ITS | Clinical Summary ---
Author Organization [facility] [address] [facility] Address [address] [place] [address] Phone Care Team Providers Care Oracle E Business Developer Name Role Phone Mich Worthington MD Primary Care Provider Medical History Medical History Date Comments Major depressive disorder, s cassandra episode 09/24/2017 DX:Major depressive disorder , single episode COPD (chronic obstructive pu lmonary disease) (CMS/HCC V24, CMS/HCC V28) DX:COPD (chronic o bstructive pulmonary disease) (HCC) Adrenal gland neoplasm DX:Adrena [...] Health Maintenance Due Date Last Done Comments Colorectal Cancer Screening: Colonoscopy 1955 Zoster Vaccines (2 of 2) 05/03/2019 03/08/2019 Abdominal Aortic Aneurysm (AAA) Screen 10/07/2022 Cholesterol Screening (Lipid Panel) 10/07/2022 Falls Risk Assessment 10/07/2022 Hepatitis C Screening 10/07/2022 Medicare Annual Wellness Visit 10/07/2022 Social Influencers of Health Screening 10/07/2022 Depression Screening 11/08/2024 Pneumococcal Vaccine: 50+ Years (3 of 3 [...] Documents on File Type Date Recorded Patient Php Programmer Expl anation Health Care Decision (hx) 11/23/2017 AD ADAME DIRECTIVE Health Care Decision (hx) 11/23/2017 AD ADAME DIRECTIVE Health Care Decision (hx) 11/23/2017 AD ADAME DIRECTIVE Health Care Decision (hx) 11/23/2017 AD ADAME DIRECTIVE Health Care Decision (hx) 11/23/2017 AD ADAME DIRECTIVE Care Teams Oracle E Business Developer Relationship Specialty Start Date End Date Mich Worthington MD PCP - General Family Medicine 12/15/24
== END 2025-08-13 10:37 | disposition home or self-care (01) ==
LOC: HO.HMCFM 09:39
PROVIDERS: PCP Family Medicine; Visit Provider Family Medicine
DX: R73.03 Prediabetes (principal)

== ENCOUNTER → 2025-08-13 09:38 | Outpatient (BNVA) | payer MEDICARE, SELFPAY | PROVIDERS: PCP Family Medicine; Visit Provider Family Medicine | DX: R73.03 Prediabetes (principal); E78.5 Hyperlipidemia, unspecified; N32.0 Bladder-neck obstruction; R35.0 Frequency of micturition; I10 Essential (primary) hypertension | CPT/HCPCS: 83036; 99212 ==

== ENCOUNTER 2025-09-10 11:21 | Outpatient (REF) | payer MEDICARE, SELFPAY ==
--- NOTE | ~2025-09-10 | US_ITS ---
EXAMINATION: US BLADDER HISTORY: R97.20 - Elevated prostate specific antigen [PSA] COMPARISON: There are no prior studies available for comparison. FINDINGS: Sonographic examination of the urinary bladder was performed before and after voiding. Before voiding, the urinary bladder measured 7.2 x 6.0 x 7.5, for an estimated volume of 169 mL. After voiding, the urinary bladder measured 4.7 x 4.3 x 5.7, for an estimated volume of 59 mL. No intrinsic bladder abnormality is identified. Bilateral ureteral jets are identified. The prostate measures 3.7 x 4.0 x 4.5 cm, for an estimated volume of 35 mL. US/US bladder IMPRESSION: 1. Unremarkable sonographic examination of the urinary bladder. 2. Postvoid bladder residual of 59 mL. 3. Prostate volume of 35 mL. Electronically signed by: Yahir Bhatia MD 09/10/2025 11:47 AM [facility]
--- OUTSIDE RECORDS SUMMARY | 2025-09-10 14:26 | XMS_ITS | Encounter Summary ---
Author Organization [employer] Address [address] [place] [address] [address] [place] [address] Care Team Providers Care Cane Cutter Name Role Phone Unavailable Primary Care Provider Unavailabl e Reason for Visit * Reason Onset Date Comments case back from lab 04/25/2024 Encounter Details Date Type Department Care Team (Late st Contact Info) Description 04/25/2024 Telephone [facility] DENTAL [address] [place], [place] [phone] Lokesh Burnett BDS [address] [place], [place] [phone] case back from lab Social History Tobacco [...] EDT Sent message via email to front of house manager as well today as patient is looking to hear back and still hasno response on case. Please reach out to patient DR * Telephone Encounter - Kay Min - 04/25/2024 10:55 AM EDT This message was sent to Dr. Sawant on [facility] side. Resending again. Dr Kaplan name and [...]
--- OUTSIDE RECORDS SUMMARY | 2025-09-10 14:26 | XMS_ITS | Clinical Summary ---
Author Organization [facility] [address] [facility] Address [address] [place] [address] Phone Care Team Providers Care Control Clerk Repairs Name Role Phone Mich Worthington MD Primary [...] complete this topic Insurance [employer] MEDICARE ADVANTAGE Member Subscriber Plan / Payer (Ef fective 2024-Present) Name:Darrion Haas Relation to Subscriber:Self Name:Darrion Haas Payer ID:[id number] ([facility]) Type:Not on file Address: [facility] [address] [place] [address] MEDICA[place] [employer] MEDICARE ADVANTAGE Advance Directives Documents on File Type Date Recorded Patient Varitypist Expl anation Health Care Decision (hx) 11/23/2017 AD ADAME DIRECTIVE Health Care Decision (hx) 11/23/2017 AD ADAME DIRECTIVE Health Care Decision (hx) 11/23/2017 AD ADAME DIRECTIVE Health Care Decision (hx) 11/23/2017 AD ADAME DIRECTIVE Health Care Decision (hx) 11/23/2017 AD ADAME DIRECTIVE Care Teams Control Clerk Repairs Relationship Specialty Start Date End Date Mich Worthington MD PCP - General Family Medicine 12/15/24
--- OUTSIDE RECORDS SUMMARY | 2025-09-10 14:26 | XMS_ITS | Clinical Summary ---
Author Organization [employer] Address [address] [facility] [address] [place] [address] Care Team Providers Care Stem Threshing Machine Operator Name Role Phone Unavailable Primary Care [...] Most Recently Relevant to Health Maintenance Insurance [facility]
--- OUTSIDE RECORDS SUMMARY | 2025-09-10 14:26 | XMS_ITS | Encounter Summary ---
Author Organization [employer] Address [address] [facility] 7t [place] [address] Care Team Providers Care Statistical Clerk Name Role Phone Unavailable Primary Care Provider Unavailabl e Encounter Details Date Type Department Care Team (Late st Contact Info) Description 03/20/2024 Telephone [facility] [address] [place], [place] [phone] Lokesh Burnett BDS [address] [place], [place] [phone] Social History Tobacco Use Types Packs/Day Years [...]
== END 2025-09-10 11:22 | disposition home or self-care (01) ==
LOC: HO.US 11:21
PROVIDERS: PCP Family Medicine; Visit Provider Urology
DX: R97.20 Elevated prostate specific antigen [PSA] (principal)
CPT/HCPCS: 76857

== ENCOUNTER → 2025-09-10 11:22 | Outpatient (BNV) | payer MEDICARE, SELFPAY | PROVIDERS: PCP Family Medicine; Visit Provider Radiology Diagnostic Radiology | DX: R97.20 Elevated prostate specific antigen [PSA] (principal) | CPT/HCPCS: 76857 ==

== ENCOUNTER 2025-09-18 09:37 | Outpatient (AMB) | payer MEDICARE, SELFPAY ==
--- NOTE | 2025-09-18 10:00 | A.OFFVIS_ITS ---
Intake Visit Reasons: 4m follow up/ PSA/US Intake Note: Patient is present for 4 mo follow up Urology Medication:Finasteride Antibiotic Allergy:SIMVASTSTIN Blood Thinner:NONE Imaging : Ultrasound 09/10/25 Labs done 05/16/25: Total PSA 7.22 Tire Mold Tester Required: No Accompanied by: Self / Same As Patient Allergies simvastatin Allergy (Intermediate, Verified 09/18/25 10:02) Anxiety HPI Comments Details: Darrion is a pleasant male. He is a patient of Dr. Worthington. He is seen for the following urologic conditions - elevated PSA Five month follow-up Has been on finasteride High free percentage Continue current medications Six-month follow-up repeat PSA Does drink 4 cups of coffee per day Should reduced to 2 Watch coffee in evening Elevated PSA He presents for - evaluation of elevated PSA Lower Urinary Tract Symptoms include - has noticed progressive urinary symptoms over past 6 months including weakness of stream, incomplete emptying. Minimal nocturia increasing bother Investigations include - PSA - 05/02 6.2, 06/01 6.9 30% - NIRALI 2+ soft - a transrectal ultrasound no - a prostate MRI note - TRUS Biopsy - none - bladder ultrasound 40 cc prostate, 40 cc residual Individualized Prostate Cancer Risk Calculator - PCPT Calculator - 10% risk high-grade disease Associated conditions include dyslipidemia Therapeutic plan will be - continue finasteride with six-month follow-up and repeat PSA [facility] Social History Housing: House Patient Tobacco Use Status: Former Tobacco user e-Cigarette/Vaping Use: Never Used service: No Current occupational status: retired Current occupational exposures/hazards: No Cognitive needs: No Hearing needs: No Vision needs: No Review of Systems Const Denies chills and Denies fever(s) Card Reports no additional complaints and Denies syncope Resp Denies cough GI Denies abdominal pain and Denies heartburn Reports as per HPI and Denies change in libido Neuro Denies syncope Psych Denies change in libido Endo Denies change in libido Physical Exam Const General: cooperative, healthy appearing, comfortable and no acute distress Orientation/consciousness: patient oriented x3 HEENT Face and sinus: Yes normal facial exam Mouth: moist mucous membranes Neck Neck: Yes normal visual inspection, Yes full ROM and Yes trachea midline Chest Chest palpation & inspection: normal inspection of the chest Resp Effort & Inspection: normal respiratory effort, able to speak in complete sentences and no respiratory distress GI Inspection: Yes normal to inspection Back/Spine/Pelvis Cervical Spine: normal cervical lordosis Thoracic/Lumbar Spine: thoracic and lumbar spine normal to inspection Skin General skin exam: no rashes or lesions noted Neuro General: patient oriented x3, gait normal, tone normal and moves all extremities Extrem General: Yes normal to inspection and Yes capillary refill normal Office Procedures Post Void Residual Post Residual Void Post Void Residual (PVR): 48 09144-[id number] Void Residual by ultrasound Results AMB Urinalysis, Automated UA Leukoctes 0 Thelma/uL Last Edit by Kanchan Matias [facility] on 09/18/25 10:10 UA Nitrite Negative Last Edit by Kanchan Matias, [facility] on 09/18/25 10:10 UA Urobilinogen 0.2 mg/dL Last Edit by Kanchan Matias [facility] on 09/18/25 10:10 UA Protein 0 mg/dL Last Edit by Kanchan Matias, [facility] on 09/18/25 10:10 UA pH 6.0 Last Edit by Kanchan Matias, [facility] on 09/18/25 10:10 UA Blood 0 Hector/uL Last Edit by Kanchan Matias, [facility] on 09/18/25 10:10 UA Specific Melville 1.005 Last Edit by Kanchan Matias [facility] on 09/18/25 10:1 0 UA Ketone Negative Last Edit by Kanchan aMtias [facility] on 09/18/25 10:10 UA Bilirubin 0 mg/dL Last Edit by Kanchan Matias, [facility] on 09/18/25 10:10 UA Glucose 0 mg/dL Last Edit by Kanchan Matias [facility] on 09/18/25 10:10 Results Reviewed Results Reviewed: Laboratory Last Values Urine pH (Auto) 6.0 09/18/25 10:09 Specific Melville (Auto) 1.005 09/18/25 10:09 Urine Protein (Auto) 0 mg/dL 09/18/25 10:09 Glucose (UA)(Auto) 0 mg/dL 09/18/25 10:09 Urine Ketones (Auto) Negative 09/18/25 10:09 Urine Blood (Auto) 0 Hector/uL 09/18/25 10:09 Urine Nitrite (Auto) Negative 09/18/25 10:09 Urine Bilirubin (Auto) 0 mg/dL 09/18/25 10:09 Urine Urobilinogen (Auto) 0.2 mg/dL 09/18/25 10:09 Leukocyte Esterase (Auto) 0 Thelma/uL 09/18/25 10:09 Assessment & Plan Assessment & Plan (1) Bladder outlet obstruction: Code(s): N32.0 - Bladder-neck obstruction Category: Medical (2) Urinary frequency: Code(s): R35.0 - Frequency of micturition Category: Medical Plan Continue finasteride Six-month follow-up repeat lab work Orders: Orders PSA,Total (Free>4and<10) 6 Months N32.0 - Bladder-neck obstruction Patient Instructions: This note is constructed using voice recognition software. While every effort has been made to ensure accuracy senior php developer errors may have been included. Imaging studies, laboratory and physical exam results were discussed and reviewed in detail. No major barriers to patient understanding were identified. An opportunity to ask questions regarding the treatment plan was provided. All questions were answered. The patient expressed understanding and agreement with the above treatment plan. The patient is aware they should contact our office by phone for worsening of their current condition or the appearance of new urologic symptoms. Compliance is encouraged with any medications and followup testing that is ordered. It is a privilege to participate in the urologic care of your patient. If you have any questions or concerns regarding treatment for the above conditions, or other urologic issues, please do not hesitate to contact me. The office telephone contact is [phone]. Sincerely, Dr Jonny Streeter MD, [facility] - Urology Compassionate Specialist Care for the Genitourinary System Coding Level of Care Code Est Pt Level 3 (88738) Complex EM visit Add On G2211 Diagnoses Bladder outlet obstruction N32.0 Urinary frequency R35.0 CPT Codes Post Residual Void - PVR CPT Code: 16374-Rrqp Void Residual by ultrasound ([id number])
--- OUTSIDE RECORDS SUMMARY | 2025-09-18 10:50 | XMS_ITS | Encounter Summary ---
Author Organization [facility] [employer] Address [address] [facility] [address] [place] [address] Care Team Providers Care Top Case Assembler Name Role Phone Unavailable Primary Care Provider Unavailabl e Encounter Details Date Type Department Care Team (Late st Contact Info) Description 03/20/2024 Telephone [facility] [address], [place] [phone] Lokesh Burnett BDS [address] [place], [place] [phone] Social History Tobacco Use Types Packs/Day Years [...]
--- OUTSIDE RECORDS SUMMARY | 2025-09-18 10:50 | XMS_ITS | Clinical Summary ---
Author Organization [facility] Address [address] [facility] [address] [place] [address] Care Team Providers Care Pricing Associate Name Role Phone Unavailable Primary Care Provider [...] Most Recently Relevant to Health Maintenance Insurance [facility]
--- OUTSIDE RECORDS SUMMARY | 2025-09-18 10:50 | XMS_ITS | Encounter Summary ---
Author Organization [employer] Address [address] [place] [address] [address] [place] [address] Care Team Providers Care Tool And Die Maker/Designer Name Role Phone Unavailable Primary Care Provider Unavailabl e Reason for Visit * Reason Onset Date Comments case back from lab 04/25/2024 Encounter Details Date Type Department Care Team (Late st Contact Info) Description 04/25/2024 Telephone [facility] [address] [place], [place] [phone] Lokesh Burnett BDS [address] [place], [place] [phone] case back from lab Social History Tobacco [...] Sent message via email to front end specialist as well today as patient is looking to hear back and still hasno response on case. Please reach out to patient DR * Telephone Encounter - Kay Min - 04/25/2024 10:55 AM EDT This message was sent to Dr. Sawant on [facility] side. Resending again. Dr Kaplan [...]
--- OUTSIDE RECORDS SUMMARY | 2025-09-18 10:50 | XMS_ITS | Clinical Summary ---
Author Organization [facility] [address] [facility] Address [address] [place] [address] Phone Care Team Providers Care Television Analyzer Name Role Phone Mich Worthington MD Primary [...] complete this topic Insurance [employer] [address] MEDICA[place] [employer] [place] Advance Directives Documents on File Type Date Recorded Patient Health Information Technician Expl anation Health Care Decision (hx) 11/23/2017 AD ADAME DIRECTIVE Health Care Decision (hx) 11/23/2017 AD ADAME DIRECTIVE Health Care Decision (hx) 11/23/2017 AD ADAME DIRECTIVE Health Care Decision (hx) 11/23/2017 AD ADAME DIRECTIVE Health Care Decision (hx) 11/23/2017 AD ADAME DIRECTIVE Care Teams Television Analyzer Relationship Specialty Start Date End Date Mich Worthington MD PCP - General Family Medicine 12/15/24
== END 2025-09-18 10:44 | disposition home or self-care (01) ==
LOC: HO.HUSH 09:37
PROVIDERS: PCP Family Medicine; Visit Provider Urology
DX: N32.0 Bladder-neck obstruction (principal); R35.0 Frequency of micturition
CPT/HCPCS: 99213; G2211

== ENCOUNTER → 2025-09-18 09:37 | Outpatient (BNVA) | payer MEDICARE, SELFPAY | PROVIDERS: PCP Family Medicine; Visit Provider Urology | DX: N32.0 Bladder-neck obstruction (principal); R35.0 Frequency of micturition | CPT/HCPCS: 51798; 99212 ==

== ENCOUNTER 2025-10-12 09:38 | Outpatient (REF) | payer MEDICARE, SELFPAY ==
[2025-10-12 12:28] LABS: Alanine Aminotransferase 39 U/L (0-40); Albumin Level 4.8 g/dL (3.5-5.0); Alkaline Phosphatase 102 U/L (39-117); Anion Gap 12 (12-20); Aspartate Amino Transferase 28 U/L (5-37); Blood Urea Nitrogen 8 mg/dL (9-16); Calcium 9.5 mg/dL (8.4-10.2); Carbon Dioxide 27 mmol/L (22-29); Chloride 105 mmol/L (96-108); Cholesterol 112 mg/dL (<200); Estimated Glomerular Filt Rate > 60; HDL Cholesterol 40 mg/dL (>40); Potassium 4.0 mmol/L (3.3-5.1); Sodium 140 mmol/L (135-145); Total Protein 7.2 g/dL (6.5-8.0); Triglycerides 62 mg/dL (<150)
[2025-10-12 13:41] LABS: Prostate Specific Antigen 3.71 ng/mL (<0.05-4.0)
== END 2025-10-12 09:39 | disposition home or self-care (01) ==
LOC: HO.WFDLDS 09:38
PROVIDERS: Referring Provider Urology; Visit Provider Family Medicine
DX: Z00.00 Encounter for general adult medical examination without abnormal findings (principal); N32.0 Bladder-neck obstruction; E78.5 Hyperlipidemia, unspecified; Z12.5 Encounter for screening for malignant neoplasm of prostate
CPT/HCPCS: 36415; 80053; 80061; 84153

== ENCOUNTER 2025-10-16 09:29 | Outpatient (AMB) | payer MEDICARE, SELFPAY ==
--- NOTE | 2025-10-16 09:42 | A.OFFPC_ITS ---
Vital Signs 10/16/25 09:48 Height 5 ft 7.5 in Weight 155 lb 6 oz BMI 24.0 BP 140/78 H Blood Pressure Location Rt brachial Position Sitting Respiration 15 Pulse 70 Pulse Source Pulse Oximeter Temp 97.7 F Temp Source Temporal Artery Scan Pulse Oximetry (%) 97 Oxygen Delivery Method Room Air Intake Visit Reasons: f/u HTN Intake Note: Darrion presents in the office today for hypertension and diabetes. Engineering Production Liaison Required: No Allergies simvastatin Allergy (Intermediate, Verified 10/16/25 09:47) Anxiety Medication List - Last Reconciled 10/16/25 by Mich Worthington MD albuterol sulfate 90 mcg/actuation 2 puffs inhalation Q4-6H PRN alprazolam 0.25 mg PO DAILY PRN 30 days atorvastatin 40 mg PO BEDTIME 90 days blood pressure monitor Automatic, Digital. Dx: I10. Daily As directed, 999 days/lifetime citalopram 20 mg PO DAILY 90 days ezetimibe 10 mg PO DAILY 90 days ezetimibe 10 mg PO DAILY 90 days finasteride 5 mg PO DAILY 90 days triamcinolone acetonide (Nasacort) 2 sprays intranasal DAILY 30 days Tobacco use date assessed: 10/16/25 Fall risk assessment: No Falls in past year Last assessed Fall Risk: 10/16/25 Dental Screening Dental Screen Date: 10/16/25 Did you have a dental visit in the last 12 months?: No Did you have a dental problem in the last 6 months where you did not have access to dental care?: No Was dental information given to patient?: Patient declined HPI f/u HTN HPI Details 69 y/o male presents to f/u HTN. BP today 140/78, 70p. He is not on any meds for his blood pressure. A1c today 6.2%. Recent lipid panel had been fine. He is on artovastatin 40mg. HPI Comments History of Present Illness Details Documentation assistance for Mich Worthington MD, was provided by Luis Scott, Skiff Operator on 10/16/2025 at 10:14 AM EST. Cardenas, Dr. Worthington, have read, observed, and verified documentation. ?? [facility] Social History (Updated 10/16/25 @ 09:48 by Jasmina Grove [facility]) Housing: House Alcohol intake: never Patient Tobacco Use Status: Former Tobacco user e-Cigarette/Vaping Use: Never Used Second Hand Smoke Exposure: No Use of substances other than those prescribed or required for medical reasons: Yes Substance Use Type: Marijuana service: No Current occupational status: retired Current occupational exposures/hazards: No Cognitive needs: No Hearing needs: No Vision needs: No Questionnaire Thrive Questionnaire Date Thrive assessed: 11/10/24 I am a: Patient What is your living situation today?: I have a steady place to live Within the past 12 months, did the food you bought not last and you didn't have the money to get more?: Never true Within the past 12 months, did you worry whether your food would run out before you got money to buy more?: Never true Do you have trouble paying for medicines?: No Do you have trouble getting transportation to medical appointments?: No Do you have trouble paying your heating and electricity bill?: No Do you have trouble taking care of your child, family member or friend?: No Do you have trouble with day-to-day activities such as bathing, preparing meals, shopping, managing finances, etc.?: No Are you currently unemployed and looking for a job?: No Are you interested in more education?: No Please select the resources that you would like help with: None Currently or been in a relationship where the following occur: No concerns reported THRIVE Score: 0 LESLIE-7 AMB Questionnaire LESLIE-7 Date LESLIE - 7 assessed: 02/17/24 Source: Developed by Drs. Yahir Jackson, Teri Shoemaker, David Jimenez and colleagues, with an educational louis from [employer]. Review of Systems Const Denies chills, Denies fatigue, Denies fever(s), Denies headache(s) and Denies weakness ENT Denies dizziness and Denies headache(s) Card Denies chest pain, Denies lightheadedness, Denies dyspnea and Denies other (Palpitations) Resp Denies cough, Denies dyspnea, Denies wheezing and Denies other ( shortness of breath) Musc Denies numbness and Denies tingling Neuro Denies dizziness, Denies headache(s), Denies numbness, Denies tingling, Denies paresthesias and Denies weakness Psych Denies anxiety and Denies depression Endo Denies fatigue Aller/Immun Denies wheezing Physical exam (Primary Care) Vital Signs: Last Vital Signs Temp 97.7 F 10/16/25 09:48 Pulse 70 10/16/25 09:48 Resp 15 10/16/25 09:48 BP 140/78 H 10/16/25 09:48 Pulse Ox 97 10/16/25 09:48 Oxygen Delivery Method Room Air 10/16/25 09:48 BMI result Body Mass Index 24.0 Tobacco/Smoking Status: Tobacco use Status Tobacco use date assessed 10/16/25 10/16/25 09:58 Patient Tobacco Use Status Former Tobacco user 10/16/25 09:48 e-Cigarette/Vaping Use Never Used 10/16/25 09:48 Thrive Assessment: Date of Thrive Assessment Date Thrive assessed 11/10/24 10/16/25 09:43 Currently or been in a relationship where the following occur: No concerns reported Const General: no acute distress and well developed Nutritional Appearance: well nourished Orientation/consciousness: patient oriented x3 HENMT Head: Yes normocephalic and Yes atraumatic Eyes General: appearance normal, both eyes and all related structures Pupils: Equal, round and reactive pupils present EOM: EOMs intact bilaterally Resp Effort & Inspection: normal respiratory effort Auscultation: clear to auscultation bilaterally Cardio Rate: regular rate Rhythm: regular rhythm Heart sounds: S1 normal heart sound present, S2 normal heart sound present, no gallops, no murmurs and no rubs Neuro General: patient oriented x3 and gait normal Cranial nerves: Yes Equal, round and reactive pupils present Psych Affect: normal affect Results AMB Hemoglobin A1c AMB Hemoglobin A1c 6.2 % Last Edit by Jasmina Grove CMA on 10/16/25 09:59 Results Reviewed Results Reviewed: Laboratory Last Values Hgb A1c (Clinic) 6.2 % (4.0-6.0) H 10/16/25 09:58 Coding Level of Care Code Est Pt Level 3 (07151) Diagnoses Hypertension I10 Pre-diabetes R73.03 Hyperlipidemia E78.5 Assessment & Plan Assessment & Plan (1) Hypertension: Code(s): I10 - Essential (primary) hypertension Category: Medical Plan: Blood pressure remains elevated above 140/90 Start losartan Check blood pressures at home Will follow-up few months (2) Pre-diabetes: Code(s): R73.03 - Prediabetes Category: Medical Plan: A1c remains 6.2%. Still in pre diabetes range Encouraged a diet lower in sugars and starches (3) Hyperlipidemia: Code(s): E78.5 - Hyperlipidemia, unspecified Category: Medical Plan: Patient had discontinued his statin and Zetia. These were resumed at last visit and labs were repeated recently. LDL cholesterol is well controlled. HDL is borderline Encouraged exercise Orders: Orders AMB Hemoglobin A1c Today R73.03 - Prediabetes Medications: New losartan 25 mg PO DAILY 90 tabs 3RF 90 days
[2025-10-16 09:48] VITALS: BP 140/78; PULSE 70; RESP 15; TEMP 36.5; O2SAT 97; BMI 24.0
== END 2025-10-16 10:29 | disposition home or self-care (01) ==
LOC: HO.HMCFM 09:30
PROVIDERS: PCP Family Medicine; Visit Provider Family Medicine
DX: I10 Essential (primary) hypertension (principal); R73.03 Prediabetes; E78.5 Hyperlipidemia, unspecified

== ENCOUNTER → 2025-10-16 09:29 | Outpatient (BNVA) | payer MEDICARE, SELFPAY | PROVIDERS: PCP Family Medicine; Visit Provider Family Medicine | DX: I10 Essential (primary) hypertension (principal); R73.03 Prediabetes; E78.5 Hyperlipidemia, unspecified | CPT/HCPCS: 83036; 99212 ==